=== PATIENT | female | born 1965 | race Caucasian/White ===

== ENCOUNTER 2020-05-27 08:08 | Outpatient (REF) | payer OTHER, SELFPAY | END 2020-05-27 08:09 | disposition home or self-care (01) | LOC: HO.HMGCLDS 08:08 | PROVIDERS: PCP Internal Medicine; Visit Provider Internal Medicine | DX: Z20.828 Contact with and (suspected) exposure to other viral communicable diseases (principal) | CPT/HCPCS: 87635 ==

== ENCOUNTER 2020-05-28 13:49 | Outpatient (REF) | payer OTHER, SELFPAY ==
--- NOTE | 2020-05-28 13:53 | XR_ITS ---
EXAMINATION: LEFT KNEE 3 VIEWS CLINICAL INFORMATION: Left knee pain. COMPARISON: None. TECHNIQUE: AP, lateral, oblique views of the left knee were obtained. FINDINGS: There are no fractures or dislocations. There is no knee joint effusion. There is no significant soft tissue swelling. XR/XR knee LT 4V IMPRESSION: Unremarkable left knee radiographs.
== END 2020-05-28 13:50 | disposition home or self-care (01) ==
LOC: HO.HMGCX 13:49
PROVIDERS: PCP Internal Medicine; Visit Provider Nurse Practitioner Family
DX: M25.562 Pain in left knee (principal)
CPT/HCPCS: 73564

== ENCOUNTER 2020-06-12 07:24 | Outpatient (REF) | payer OTHER, SELFPAY ==
[2020-06-12 12:03] LABS: Alanine Aminotransferase 9 U/L (0-31); Anion Gap 15 (12-20); Aspartate Amino Transferase 15 U/L (5-31); Blood Urea Nitrogen 18 mg/dL (9-16); Calcium 8.7 mg/dL (8.4-10.2); Carbon Dioxide 24 mmol/L (22-29); Chloride 103 mmol/L (96-108); Cholesterol 207 mg/dL; Estimated Glomerular Filt Rate 39; HDL Cholesterol 52 mg/dL; LDL Cholesterol Calculated 121 mg/dl; Potassium 4.9 mmol/l (3.3-5.1); Sodium 137 mmol/L (135-145); Triglycerides 170 mg/dL
[2020-06-12 12:08] LABS: Free T4 (Free Thyroxine) 1.05 ng/dL (0.71-1.85); Thyroid Stimulating Hormone 3.61 uIU/mL (0.32-4.0)
[2020-06-12 12:13] LABS: Glucose Fasting 61 mg/dL (60-99)
== END 2020-06-12 07:25 | disposition home or self-care (01) ==
LOC: HO.HMGCLDS 07:24
PROVIDERS: PCP Internal Medicine; Visit Provider Internal Medicine
DX: E10.21 Type 1 diabetes mellitus with diabetic nephropathy (principal); E03.9 Hypothyroidism, unspecified; E78.5 Hyperlipidemia, unspecified; F10.21 Alcohol dependence, in remission; Z87.440 Personal history of urinary (tract) infections
CPT/HCPCS: 80048; 80061; 84439; 84443; 84450; 84460

== ENCOUNTER 2020-06-18 08:47 | Outpatient (REF) | payer OTHER, SELFPAY ==
[2020-06-18 12:50] LABS: Creatinine Urine 100.47 mg/dL; Microalbum/Creatinine Ratio Ur 43.7 ug/mg cr
== END 2020-06-18 08:48 | disposition home or self-care (01) ==
LOC: HO.HMGCLDS 08:47
PROVIDERS: Visit Provider Internal Medicine
DX: Z20.828 Contact with and (suspected) exposure to other viral communicable diseases (principal)
CPT/HCPCS: 82043; C9803; U0003

== ENCOUNTER 2020-08-12 14:22 | Outpatient (REF) | payer OTHER, SELFPAY ==
[2020-08-12 15:03] LABS: COVID-19 Test Negative (Negative)
== END 2020-08-12 14:23 | disposition home or self-care (01) ==
LOC: HO.EMPCOV 14:22
PROVIDERS: PCP Internal Medicine; Visit Provider Internal Medicine
DX: Z20.822 Contact with and (suspected) exposure to COVID-19 (principal)
CPT/HCPCS: 36415; 87635; C9803

== ENCOUNTER 2020-08-17 11:07 | Outpatient (REF) | payer OTHER, SELFPAY ==
[2020-08-17 11:23] LABS: COVID-19 Test Negative (Negative)
== END 2020-08-17 11:08 | disposition home or self-care (01) ==
LOC: HO.EMPCOV 11:07
PROVIDERS: Visit Provider Internal Medicine
DX: Z20.822 Contact with and (suspected) exposure to COVID-19 (principal)
CPT/HCPCS: 36415; 87635; C9803

== ENCOUNTER 2020-09-29 08:15 | Outpatient (REF) | payer OTHER, SELFPAY ==
[2020-09-29 08:31] LABS: COVID-19 Test Negative (Negative)
== END 2020-09-29 08:16 | disposition home or self-care (01) ==
LOC: HO.EMPCOV 08:15
PROVIDERS: Visit Provider Internal Medicine
DX: Z20.822 Contact with and (suspected) exposure to COVID-19 (principal)
CPT/HCPCS: 36415; 87635; C9803

== ENCOUNTER → 2020-11-17 11:03 | Outpatient (BNVA) | payer OTHER, SELFPAY | PROVIDERS: PCP Nurse Practitioner Family; Visit Provider Student in an Organized Health Care Education/Training Program ==

== ENCOUNTER 2020-11-21 10:07 | Outpatient (REF) | payer OTHER, SELFPAY ==
--- NOTE | ~2020-11-21 | XR_ITS ---
EXAMINATION: XR FOOT, RIGHT CLINICAL INFORMATION: Right foot pain. COMPARISON: None TECHNIQUE: AP, lateral, and oblique views of the right foot. FINDINGS: Moderate degenerative changes are seen at the third metatarsophalangeal joint. There is no acute fracture or dislocation. The tarsal bones are normally aligned. The soft tissues are unremarkable. XR/XR foot RT min 3V IMPRESSION: Moderate third metatarsophalangeal degenerative joint changes are nonspecific, but has an appearance more consistent with osteoarthritis than rheumatoid arthritis.
--- NOTE | ~2020-11-21 | XR_ITS ---
EXAMINATION: XR HAND, BILATERAL CLINICAL INFORMATION: Rheumatoid arthritis. COMPARISON: Correlation with right wrist 03/07/2017; bilateral hands 12/09/2015 TECHNIQUE: Bilateral hands each 4 views. FINDINGS: LEFT HAND: Severe arthropathy in the 2nd and 4th MCP joints, with joint space loss, prominent erosive changes, new from previous. Fingers are flexed in positioning. Suspected mild joint space loss at the 2nd-5th DIP joints. No fracture. No abnormal soft tissue calcification. RIGHT HAND: Possible subtle erosion in the proximal base of 2nd and 4th metacarpal, only visualized on one view. Cortical irregularity perhaps erosive changes along the radial aspect of the distal scaphoid. No ulnar styloid erosion is seen. Borderline 2nd-5th DIP joint space narrowing. No additional erosive changes are seen. No fracture. No abnormal soft tissue calcification. XR/XR hand wrist LT IMPRESSION: 1. Severe left 2nd and 4th MCP joint arthritis, with prominent erosive changes. Findings new from the prior study of 12/09/2015. Findings correlate with the clinical history of rheumatoid arthritis. 2. In the right hand, question subtle erosion in the proximal 2nd and 4th metacarpal base, and the radial aspect of the scaphoid.
--- NOTE | ~2020-11-21 | XR_ITS ---
EXAMINATION: XR CHEST CLINICAL INFORMATION: Rheumatoid arthritis with rheumatoid factor. COMPARISON: 09/09/2019 portable chest. TECHNIQUE: 2 views of the chest were obtained. FINDINGS: No significant abnormality is noted involving the heart, lungs, mediastinum, bony thorax or soft tissues. XR/XR chest 2V IMPRESSION: No acute cardiopulmonary process.
--- NOTE | ~2020-11-21 | XR_ITS ---
EXAMINATION: XR FOOT, LEFT CLINICAL INFORMATION: Rheumatoid arthritis with rheumatoid factor. COMPARISON: None TECHNIQUE: AP, lateral, and oblique views of the left foot. FINDINGS: Moderate degenerative changes are seen at the fourth metatarsophalangeal joint. The remainder the joint spaces are unremarkable. There is an old healed mid fifth metatarsal diaphyseal fracture. There is a type I accessory navicular bone. The tarsal bones are normally aligned. The soft tissues are unremarkable. XR/XR foot LT min 3V IMPRESSION: Moderate degenerative changes at the fourth metatarsophalangeal joint which could be secondary to rheumatoid arthritis. Osteoarthritis cannot be excluded. No acute abnormality.
--- NOTE | ~2020-11-21 | XR_ITS ---
EXAMINATION: XR HAND, BILATERAL CLINICAL INFORMATION: Rheumatoid arthritis. COMPARISON: Correlation with right wrist 03/07/2017; bilateral hands 12/09/2015 TECHNIQUE: Bilateral hands each 4 views. FINDINGS: LEFT HAND: Severe arthropathy in the 2nd and 4th MCP joints, with joint space loss, prominent erosive changes, new from previous. Fingers are flexed in positioning. Suspected mild joint space loss at the 2nd-5th DIP joints. No fracture. No abnormal soft tissue calcification. RIGHT HAND: Possible subtle erosion in the proximal base of 2nd and 4th metacarpal, only visualized on one view. Cortical irregularity perhaps erosive changes along the radial aspect of the distal scaphoid. No ulnar styloid erosion is seen. Borderline 2nd-5th DIP joint space narrowing. No additional erosive changes are seen. No fracture. No abnormal soft tissue calcification. XR/XR hand wrist RT IMPRESSION: 1. Severe left 2nd and 4th MCP joint arthritis, with prominent erosive changes. Findings new from the prior study of 12/09/2015. Findings correlate with the clinical history of rheumatoid arthritis. 2. In the right hand, question subtle erosion in the proximal 2nd and 4th metacarpal base, and the radial aspect of the scaphoid.
[2020-11-21 11:07] LABS: MANUAL DIFF FLAG NO
[2020-11-21 11:14] LABS: Basophils Absolute Auto 0.1 X10*3/uL (0.0-0.2); Basophils Percent Auto 0.5 % (0-2); Eosinophils Percent Auto 0.1 % (0-4); Hemoglobin 12.2 g/dl (12.0-16.0); Imm Gran Abs Auto 0.05 X10*3/uL (0.00-0.03); Imm Gran Pct Auto 0.5 % (0.0-0.4); Lymphocytes Absolute Auto 1.6 X10*3/uL (1.2-4.9); Lymphocytes Percent Auto 16.6 % (20-40); Mean Corpuscular Hemoglobin 30.7 pg (27.0-33.0); Mean Platelet Volume 9.4 fL (9.4-12.3); Monocytes Absolute Auto 0.4 X10*3/uL (0.1-1.2); Monocytes Percent Auto 4.6 % (2-11); Neutrophils Absolute Auto 7.3 X10*3/uL (2.0-8.3); Neutrophils Percent Auto 77.7 % (45-73); Platelet Count 415 X10*3/uL (160-400); Red Blood Count 3.98 X10*6/uL (4.20-5.50); Red Cell Distribution Width 13.1 % (11.0-16.0); White Blood Count 9.4 X10*3/uL (4.8-10.8)
[2020-11-21 11:54] LABS: Erythrocyte Sedimentation Rate 22 MM/HR (0-20)
[2020-11-21 11:58] LABS: Microalbum/Creatinine Ratio Ur 42.4 ug/mg cr
[2020-11-21 11:59] LABS: Estimated Average Glucose 214 mg/dL; Hemoglobin A1c % 9.1 %
[2020-11-21 12:19] LABS: Alanine Aminotransferase 12 U/L (0-31); Albumin Level 4.2 g/dL (3.5-5.0); Alkaline Phosphatase 85 U/L (39-117); Anion Gap 18 (12-20); Aspartate Amino Transferase 12 U/L (5-31); Bilirubin Total 0.7 mg/dL (0.0-1.0); Blood Urea Nitrogen 16 mg/dL (9-16); C Reactive Protein 0.45 mg/dL (< or = 0.50); Calcium 9.8 mg/dL (8.4-10.2); Carbon Dioxide 25 mmol/L (22-29); Chloride 98 mmol/L (96-108); Cholesterol 247 mg/dL; Estimated Glomerular Filt Rate 38; Glucose Fasting 404 mg/dL (60-99); HDL Cholesterol 66 mg/dL; LDL Cholesterol Calculated 129 mg/dl; Rheumatoid Factor 123.1 IU/mL (<15.0); Sodium 136 mmol/L (135-145); Total Protein 7.2 g/dL (6.5-8.0); Triglycerides 263 mg/dL
[2020-11-23 08:13] LABS: HBsAGNum1 0.16 S/CO (0.00-0.99); Hepatitis B Surface Antigen Negative (Negative); ~HepC Num1 0.09 S/CO (0.00-0.79); ~Hepatitis C Antibody Nonreactive (Nonreactive)
[2020-11-23 08:53] LABS: HBS Num1 0.19 mIU/mL (0-7.99); HBc Num1 0.05 S/CO (0.00-0.79); Hepatitis B Core Antibody Nonreactive (Nonreactive); ~Hepatitis B Surface Antibody NONREACTIVE (Nonreactive)
[2020-11-23 13:17] LABS: Antibody to SS-A Antigen <1.0 NEG AI (<1.0 NEG); Antibody to SS-B Antigen <1.0 NEG AI (<1.0 NEG)
[2020-11-23 15:41] LABS: Cyclic Citrullinated Peptide <16 UNITS
[2020-11-23 17:22] LABS: Lyme Abs Screen <0.90 index
[2020-11-25 08:23] LABS: Hepatitis A Antibody IgM 0.13 Index (0-0.79); ~Hepatitis A Antibody IgM Nonreactive (Nonreactive)
== END 2020-11-21 10:08 | disposition home or self-care (01) ==
LOC: HO.LAB 10:07
PROVIDERS: Internal Medicine; Nurse Practitioner Family; PCP Nurse Practitioner Family; Visit Provider Student in an Organized Health Care Education/Training Program
DX: M05.741 Rheumatoid arthritis with rheumatoid factor of right hand without organ or systems involvement (principal); M05.742 Rheumatoid arthritis with rheumatoid factor of left hand without organ or systems involvement; E10.40 Type 1 diabetes mellitus with diabetic neuropathy, unspecified; E10.65 Type 1 diabetes mellitus with hyperglycemia; E78.5 Hyperlipidemia, unspecified; M25.50 Pain in unspecified joint
CPT/HCPCS: 36415; 71046; 73110; 73130; 73630; 80053; 80061; 82043; 83036; 85025; 85652; 86140; 86200; 86235; 86431; 86617; 86618; 86704; 86706; 86709; 86803; 87340

== ENCOUNTER → 2020-12-03 15:31 | Outpatient (BNVA) | payer OTHER, SELFPAY | PROVIDERS: PCP Nurse Practitioner Family; Visit Provider Student in an Organized Health Care Education/Training Program ==

== ENCOUNTER 2020-12-04 11:36 | Outpatient (REF) | payer OTHER, SELFPAY ==
[2020-12-06 21:46] LABS: TS Negative Control Passed; TS Panel A 0; TS Panel B 0; TS Positive Control Passed; TSpotTB Negative (SeeBelow)
== END 2020-12-04 11:37 | disposition home or self-care (01) ==
LOC: HO.HMGCLDS 11:36
PROVIDERS: Visit Provider Student in an Organized Health Care Education/Training Program
DX: M05.741 Rheumatoid arthritis with rheumatoid factor of right hand without organ or systems involvement (principal); M05.742 Rheumatoid arthritis with rheumatoid factor of left hand without organ or systems involvement; E78.5 Hyperlipidemia, unspecified; E10.65 Type 1 diabetes mellitus with hyperglycemia; E10.40 Type 1 diabetes mellitus with diabetic neuropathy, unspecified
CPT/HCPCS: 36415; 86481

== ENCOUNTER 2021-01-01 11:34 | Outpatient (REF) | payer OTHER, SELFPAY ==
[2021-01-01 14:21] LABS: MANUAL DIFF FLAG NO
[2021-01-01 14:34] LABS: Basophils Absolute Auto 0.1 X10*3/uL (0.0-0.2); Basophils Percent Auto 0.8 % (0-2); Eosinophils Absolute Auto 0.1 X10*3/uL (0.0-0.4); Hematocrit 36.5 % (37-47); Hemoglobin 11.7 g/dl (12.0-16.0); Imm Gran Abs Auto 0.03 X10*3/uL (0.00-0.03); Imm Gran Pct Auto 0.3 % (0.0-0.4); Lymphocytes Absolute Auto 3.3 X10*3/uL (1.2-4.9); Lymphocytes Percent Auto 28.3 % (20-40); Mean Corpuscular HGB Conc 32.1 g/dl (31.0-35.0); Mean Corpuscular Hemoglobin 30.6 pg (27.0-33.0); Mean Corpuscular Volume 95.5 fL (80-98); Mean Platelet Volume 9.8 fL (9.4-12.3); Monocytes Absolute Auto 0.6 X10*3/uL (0.1-1.2); Monocytes Percent Auto 5.5 % (2-11); Neutrophils Absolute Auto 7.4 X10*3/uL (2.0-8.3); Neutrophils Percent Auto 64.1 % (45-73); Platelet Count 408 X10*3/uL (160-400); Red Blood Count 3.82 X10*6/uL (4.20-5.50); Red Cell Distribution Width 12.5 % (11.0-16.0); White Blood Count 11.5 X10*3/uL (4.8-10.8)
[2021-01-01 14:46] LABS: Alanine Aminotransferase 16 U/L (0-31); Albumin Level 4.2 g/dL (3.5-5.0); Alkaline Phosphatase 113 U/L (39-117); Anion Gap 14 (12-20); Aspartate Amino Transferase 17 U/L (5-31); Bilirubin Total 0.6 mg/dL (0.0-1.0); Blood Urea Nitrogen 20 mg/dL (9-16); Carbon Dioxide 26 mmol/L (22-29); Chloride 101 mmol/L (96-108); Estimated Glomerular Filt Rate 41; Glucose Random 203 mg/dL (60-115); Sodium 136 mmol/L (135-145)
== END 2021-01-01 11:35 | disposition home or self-care (01) ==
LOC: HO.HMGCLDS 11:34
PROVIDERS: Internal Medicine; Student in an Organized Health Care Education/Training Program; PCP Nurse Practitioner Family; Visit Provider Nurse Practitioner Family
DX: M05.741 Rheumatoid arthritis with rheumatoid factor of right hand without organ or systems involvement (principal); M05.742 Rheumatoid arthritis with rheumatoid factor of left hand without organ or systems involvement; E10.40 Type 1 diabetes mellitus with diabetic neuropathy, unspecified; E10.65 Type 1 diabetes mellitus with hyperglycemia; E78.5 Hyperlipidemia, unspecified; E10.29 Type 1 diabetes mellitus with other diabetic kidney complication
CPT/HCPCS: 36415; 80053; 85025

== ENCOUNTER → 2021-01-13 16:30 | Outpatient (BNVA) | payer OTHER, SELFPAY | PROVIDERS: PCP Nurse Practitioner Family; Visit Provider Student in an Organized Health Care Education/Training Program ==

== ENCOUNTER 2021-03-22 13:29 | Outpatient (REF) | payer OTHER, SELFPAY ==
[2021-03-22 16:08] LABS: MANUAL DIFF FLAG NO
[2021-03-22 16:13] LABS: Basophils Absolute Auto 0.1 X10*3/uL (0.0-0.2); Basophils Percent Auto 0.7 % (0-2); Eosinophils Percent Auto 0.1 % (0-4); Hematocrit 36.2 % (37-47); Hemoglobin 11.8 g/dl (12.0-16.0); Imm Gran Abs Auto 0.04 X10*3/uL (0.00-0.03); Imm Gran Pct Auto 0.4 % (0.0-0.4); Lymphocytes Absolute Auto 1.5 X10*3/uL (1.2-4.9); Lymphocytes Percent Auto 14.6 % (20-40); Mean Corpuscular HGB Conc 32.6 g/dl (31.0-35.0); Mean Corpuscular Hemoglobin 30.8 pg (27.0-33.0); Mean Corpuscular Volume 94.5 fL (80-98); Mean Platelet Volume 10.2 fL (9.4-12.3); Monocytes Absolute Auto 0.4 X10*3/uL (0.1-1.2); Monocytes Percent Auto 4.2 % (2-11); Neutrophils Absolute Auto 8.4 X10*3/uL (2.0-8.3); Platelet Count 388 X10*3/uL (160-400); Red Blood Count 3.83 X10*6/uL (4.20-5.50); Red Cell Distribution Width 12.5 % (11.0-16.0); White Blood Count 10.5 X10*3/uL (4.8-10.8)
[2021-03-22 16:35] LABS: Alanine Aminotransferase 16 U/L (0-31); Albumin Level 4.2 g/dL (3.5-5.0); Alkaline Phosphatase 112 U/L (39-117); Anion Gap 17 (12-20); Aspartate Amino Transferase 12 U/L (5-31); Bilirubin Total 0.8 mg/dL (0.0-1.0); Blood Urea Nitrogen 24 mg/dL (9-16); C Reactive Protein 0.51 mg/dL (< or = 0.50); Calcium 9.1 mg/dL (8.4-10.2); Carbon Dioxide 21 mmol/L (22-29); Chloride 99 mmol/L (96-108); Estimated Glomerular Filt Rate 28; Glucose Random 548 mg/dL (60-115); Potassium 5.8 mmol/L (3.3-5.1); Sodium 131 mmol/L (135-145); Total Protein 7.1 g/dL (6.5-8.0)
[2021-03-22 16:51] LABS: Erythrocyte Sedimentation Rate 14 MM/HR (0-20)
== END 2021-03-22 13:30 | disposition home or self-care (01) ==
LOC: HO.HMGCLDS 13:29
PROVIDERS: PCP Nurse Practitioner Family; Visit Provider Student in an Organized Health Care Education/Training Program
DX: M05.741 Rheumatoid arthritis with rheumatoid factor of right hand without organ or systems involvement (principal); M05.742 Rheumatoid arthritis with rheumatoid factor of left hand without organ or systems involvement
CPT/HCPCS: 36415; 80053; 85025; 85652; 86140

== ENCOUNTER → 2021-03-23 16:03 | Outpatient (BNVA) | payer OTHER, SELFPAY | PROVIDERS: PCP Nurse Practitioner Family; Visit Provider Student in an Organized Health Care Education/Training Program ==

== ENCOUNTER 2021-04-13 06:32 | Outpatient (REF) | payer OTHER, SELFPAY ==
[2021-04-13 11:25] LABS: MANUAL DIFF FLAG NO
[2021-04-13 11:32] LABS: Appearance Urine HAZY; Color Urine YELLOW; Glucose Urine UA NEG (NEG); Leukocyte Esterase Urine 3+ (NEG); Nitrite Urine POS (NEG); PH 6.5 (5.0-8.0); UACC Culture Trigger YES; Urine Blood TRACE (NEG); Urine Ketones NEG (NEG); Urine Protein TRACE MG/DL (NEG-TRACE)
[2021-04-13 11:39] LABS: Basophils Absolute Auto 0.1 X10*3/uL (0.0-0.2); Basophils Percent Auto 0.5 % (0-2); Eosinophils Absolute Auto 0.1 X10*3/uL (0.0-0.4); Eosinophils Percent Auto 0.5 % (0-4); Hematocrit 35.7 % (37-47); Hemoglobin 11.7 g/dl (12.0-16.0); Imm Gran Abs Auto 0.07 X10*3/uL (0.00-0.03); Imm Gran Pct Auto 0.5 % (0.0-0.4); Lymphocytes Absolute Auto 4.2 X10*3/uL (1.2-4.9); Lymphocytes Percent Auto 30.3 % (20-40); Mean Corpuscular HGB Conc 32.8 g/dl (31.0-35.0); Mean Corpuscular Hemoglobin 30.8 pg (27.0-33.0); Mean Corpuscular Volume 93.9 fL (80-98); Mean Platelet Volume 10.2 fL (9.4-12.3); Monocytes Absolute Auto 0.8 X10*3/uL (0.1-1.2); Monocytes Percent Auto 5.9 % (2-11); Neutrophils Absolute Auto 8.6 X10*3/uL (2.0-8.3); Neutrophils Percent Auto 62.3 % (45-73); Platelet Count 402 X10*3/uL (160-400); Red Cell Distribution Width 12.7 % (11.0-16.0); White Blood Count 13.8 X10*3/uL (4.8-10.8)
[2021-04-13 11:54] LABS: Bacteria Urine 4+ /LPF; RBC Urine 0-2 /HPF (0); Squamous Epithelial Cell Urine 2+ /LPF; WBC Urine 30-49 /HPF (0-4)
[2021-04-13 11:55] LABS: Alanine Aminotransferase 10 U/L (0-31); Albumin Level 3.9 g/dL (3.5-5.0); Alkaline Phosphatase 67 U/L (39-117); Anion Gap 14 (12-20); Aspartate Amino Transferase 10 U/L (5-31); Bilirubin Total 1.1 mg/dL (0.0-1.0); Blood Urea Nitrogen 20 mg/dL (9-16); Calcium 9.2 mg/dL (8.4-10.2); Carbon Dioxide 25 mmol/L (22-29); Chloride 101 mmol/L (96-108); Estimated Glomerular Filt Rate 38; Glucose Random 138 mg/dL (60-115); Potassium 5.1 mmol/L (3.3-5.1); Sodium 135 mmol/L (135-145); Total Protein 6.6 g/dL (6.5-8.0)
[2021-04-13 12:00] LABS: Estimated Average Glucose 203 mg/dL; Hemoglobin A1c % 8.7 %
== END 2021-04-13 06:33 | disposition home or self-care (01) ==
LOC: HO.HMGCLDS 06:32
PROVIDERS: PCP Nurse Practitioner Family; Visit Provider Nurse Practitioner Family
DX: E10.40 Type 1 diabetes mellitus with diabetic neuropathy, unspecified (principal); E87.5 Hyperkalemia; D72.829 Elevated white blood cell count, unspecified
CPT/HCPCS: 36415; 80053; 81001; 83036; 85025; 87086; 87088; 87186

== ENCOUNTER 2021-04-24 08:21 | Outpatient (REF) | payer OTHER, SELFPAY ==
[2021-04-24 08:44] LABS: COVID-19 Test Positive (Negative)
== END 2021-04-24 08:22 | disposition home or self-care (01) ==
LOC: HO.EMPCOV 08:21
PROVIDERS: PCP Nurse Practitioner Family; Visit Provider Internal Medicine
DX: Z20.822 Contact with and (suspected) exposure to COVID-19 (principal)
CPT/HCPCS: 36415; 87635

== ENCOUNTER 2021-06-05 07:38 | Outpatient (REF) | payer OTHER, SELFPAY ==
--- NOTE | ~2021-06-05 | MM_ITS ---
EXAMINATION: MM SCREENING DIGITAL BREAST TOMOSYNTHESIS, BILATERAL CLINICAL INFORMATION: Screening. Asymptomatic. The lifetime risk of breast cancer based on the Tyrer-Cuzick Model is 7%. COMPARISON: Outside mammography 06/30/2017 ([facility]). TECHNIQUE: Digital mammography is performed in craniocaudal and mediolateral oblique views along with computer-aided detection (CAD). Digital breast tomosynthesis is performed in implant-displaced craniocaudal and implant-displaced mediolateral oblique views along with computer-aided detection (CAD). Synthesized 2D images are generated from the tomosynthesis. FINDINGS: The breasts are heterogeneously dense, which may obscure small masses (ACR BI-RADS breast composition Category c). There are bilateral implants. The implant contours are smooth and similar to outside exam. Parenchymal pattern is similar to prior study. There is no significant mass or architectural abnormality or abnormal calcifications. Low right axillary node is stable. The skin contours are smooth. MM/MM tomosynthesis screen imp BI IMPRESSION: No mammographic evidence of malignancy. ASSESSMENT: BI-RADS 1: Negative RECOMMENDATION: Routine annual mammography screening. This patient's information was entered into a reminder system with a target due date for their next mammogram.
== END 2021-06-05 07:39 | disposition home or self-care (01) ==
LOC: HO.MAMMO 07:38
PROVIDERS: Visit Provider Nurse Practitioner Family
DX: Z12.31 Encounter for screening mammogram for malignant neoplasm of breast (principal)
CPT/HCPCS: 77063; 77067

== ENCOUNTER 2021-06-28 14:28 | Outpatient (REF) | payer OTHER, SELFPAY ==
[2021-06-28 15:38] LABS: MANUAL DIFF FLAG NO
[2021-06-28 15:42] LABS: Basophils Absolute Auto 0.1 X10*3/uL (0.0-0.2); Basophils Percent Auto 0.6 % (0-2); Eosinophils Absolute Auto 0.1 X10*3/uL (0.0-0.4); Eosinophils Percent Auto 0.8 % (0-4); Hematocrit 34.3 % (37.0-47.0); Hemoglobin 11.2 g/dl (12.0-16.0); Imm Gran Abs Auto 0.02 X10*3/uL (0.00-0.03); Imm Gran Pct Auto 0.3 % (0.0-0.4); Lymphocytes Absolute Auto 1.5 X10*3/uL (1.2-4.9); Lymphocytes Percent Auto 19.5 % (20-40); Mean Corpuscular HGB Conc 32.7 g/dl (31.0-35.0); Mean Corpuscular Hemoglobin 30.5 pg (27.0-33.0); Mean Corpuscular Volume 93.5 fL (80.0-98.0); Mean Platelet Volume 9.3 fL (9.4-12.3); Monocytes Absolute Auto 0.6 X10*3/uL (0.1-1.2); Monocytes Percent Auto 7.7 % (2-11); Neutrophils Absolute Auto 5.6 x10*3/uL (2.0-8.3); Neutrophils Percent Auto 71.1 % (45-73); Platelet Count 379 X10*3/uL (160-400); Red Blood Count 3.67 X10*6/uL (4.20-5.50); White Blood Count 7.8 X10*3/uL (4.8-10.8)
[2021-06-28 16:06] LABS: Alanine Aminotransferase 10 U/L (0-31); Albumin Level 3.7 g/dL (3.5-5.0); Alkaline Phosphatase 126 U/L (39-117); Anion Gap 16 (12-20); Aspartate Amino Transferase 11 U/L (5-31); Bilirubin Total 0.5 mg/dL (0.0-1.0); Blood Urea Nitrogen 19 mg/dL (9-16); C Reactive Protein 8.84 mg/dL (< or = 0.50); Calcium 9.1 mg/dL (8.4-10.2); Carbon Dioxide 24 mmol/L (22-29); Chloride 102 mmol/L (96-108); Estimated Glomerular Filt Rate 34; Glucose Random 344 mg/dL (60-115); Potassium 5.1 mmol/L (3.3-5.1); Sodium 137 mmol/L (135-145); Total Protein 6.8 g/dL (6.5-8.0)
[2021-06-28 16:48] LABS: Erythrocyte Sedimentation Rate 36 MM/HR (0-20)
== END 2021-06-28 14:29 | disposition home or self-care (01) ==
LOC: HO.LAB 14:28
PROVIDERS: PCP Nurse Practitioner Family; Visit Provider Nurse Practitioner Family
DX: M05.741 Rheumatoid arthritis with rheumatoid factor of right hand without organ or systems involvement (principal); M05.742 Rheumatoid arthritis with rheumatoid factor of left hand without organ or systems involvement
CPT/HCPCS: 36415; 80053; 85025; 85652; 86140

== ENCOUNTER 2021-07-09 08:56 | Emergency (ER) | payer OTHER, SELFPAY ==
[2021-07-09 09:17] VITALS: BP 186/91; PULSE 90; RESP 18; TEMP 36.8; O2SAT 99; BMI 25.8
--- NOTE | 2021-07-09 09:34 | ED.EXTPRO ---
HPI - Extremity Problem General Chief complaint: Extremity Injury, Upper <MARILU Dean - Last Filed: 07/09/21 11:39> Stated complaint: PAIN IN BOTH HANDS <MARILU Dean - Last Filed: 07/09/21 11:39> Time Seen by Provider: 07/09/21 09:34 <MARILU Dean Last Filed: 07/09/21 11:39> Source: patient <MARILU Dean - Last Filed: 07/09/21 11:39> Mode of arrival: ambulatory <MARILU Dean - Last Filed: 07/09/21 11:39> Limitations: no limitations <MARILU Dean Last Filed: 07/09/21 11:39> History of Present Illness HPI Narrative: 55-year-old female with a history of poorly diabetes on insulin, rheumatoid arthritis, dyslipidemia, anxiety who presents to the ER with worsening bilateral hand pain for the last couple of months. She just saw her printed circuit boards laminator last week and was recently on prednisone for this. She states her left dorsal hand has been hurting more recently though any known trauma. She was just started on a different biologic agent for her poorly controlled RA - she gave herself SC Kevzara yesterday for the 1st time. She reports not being able to sleep at all last night due to the pain in her left hand. She took her last couple of prednisone tablets today. <MARILU Dean - Last Filed: 07/09/21 11:39> MD Complaint: joint swelling and joint paint <MARILU Dean - Last Filed: 07/09/21 11:39> Onset (ago): month(s) <MARILU Dean - Last Filed: 07/09/21 11:39> Pain Consistency: constant <MARILU Dean Last Filed: 07/09/21 11:39> Location: left, right and upper extremity <MARILU Dean Last Filed: 07/09/21 11:39> Quality: aching <MARILU Dean Last Filed: 07/09/21 11:39> Radiation: none <MARILU Dean Last Filed: 07/09/21 11:39> Relieving factors: immobilization and rest <MARILU Dean - Last Filed: 07/09/21 11:39> Exacerbating factors: range of motion and palpation <MARILU Dean - Last Filed: 07/09/21 11:39> Associated symptoms: denies other symptoms <MARILU Dean - Last Filed: 07/09/21 11:39> Context: other (History of poorly controlled rheumatoid arthritis) <MARILU Dean - Last Filed: 07/09/21 11:39> Related Data Home medications: Home Medications Medication Instructions Recorded Confirmed blood sugar diagnostic #10 ea 07/20/20 12/23/20 levonorgestrel 0.15 mg-ethinyl 1 tab PO DAILY 07/20/20 12/23/20 estradiol 0.03 mg tablet Previous Rx's Medication Instructions Recorded blood sugar diagnostic (FreeStyle #100 ea 12/23/20 Lite Strips) insulin glargine 100 unit/mL (3 24 unit SUBCUT BEDTIME #15 ml 03/20/21 mL) subcutaneous pen (Lantus Solostar U-100 Insulin) blood-glucose meter (FreeStyle #1 ea 03/30/21 Lite Meter) lisinopril 5 mg tablet 5 mg PO DAILY #90 tab 05/10/21 codeine 10 mg-guaifenesin 100 mg/5 5 ml PO .COMPLEX PRN 10 Days #1000 05/11/21 mL oral liquid ml codeine 6.3 mg-guaifenesin 100 5 ml PO .bid/prn PRN 10 Days #100 05/11/21 mg/5 mL oral liquid ml phenazopyridine 200 mg tablet 200 mg PO TID 3 Days #9 tab 05/15/21 (Pyridium) sulfamethoxazole 800 1 tab PO BID 5 Days #10 tab 05/15/21 mg-trimethoprim 160 mg tablet (Bactrim DS) flash glucose scanning reader #1 ea 06/01/21 (FreeStyle Irvin 14 Day Rogers) gabapentin 800 mg tablet 800 mg PO BID 90 Days #180 cap 06/15/21 flash glucose sensor (FreeStyle #1 ea 06/20/21 Irvin 14 Day Sensor) prednisone 5 mg tablet 5 mg PO DAILY #18 tab 06/28/21 sarilumab 200 mg/1.14 mL 200 mg SUBCUT Q2W #2.28 ml 06/29/21 subcutaneous pen injector (Kevzara) insulin lispro 100 unit/mL See Rx Instructions SUBCUT .3 07/02/21 subcutaneous pen (Humalog KwikPen times a day a.c. #15 ml (U-100) Insulin) hydrocodone 5 mg-acetaminophen 325 1 tab PO Q8H PRN #5 tab 07/09/21 mg tablet ondansetron HCl 4 mg tablet 4 mg PO Q8H PRN #7 tab 07/09/21 (Zofran) prednisone 5 mg tablets in a dose 5 mg PO PER PKG DIR #21 ea 07/09/21 pack <MARILU Dean - Last Filed: 07/09/21 11:39> Allergies/Adverse reactions: Allergies Allergy/AdvReac Type Severity Reaction Status Date / Time Iodinated Contrast Media Allergy Severe ANAPHYLAXIS Verified 06/28/21 14:51 [CONTRAST, IV] <MARILU Dean - Last Filed: 07/09/21 11:39> Review of Systems Review of Systems: Constitutional: No Fever, No Chills Cardiovascular: No Chest Pain, No SOB Gastrointestinal: No Nausea, No Vomiting Musculoskeletal: + joint pain, No Myalgias, +joint swelling Skin: No Skin Lesions, No rash Neuro: No Weakness, No Numbness Psych: + Anxiety/Panic, + Depression Heme/Lymph: No Bruising, No Lymphadenopathy <MARILU Dean - Last Filed: 07/09/21 11:39> [facility] Past Medical History Medical History: Medical History Alcohol intake above recommended sensible limits Dyslipidemia Fracture of fifth metatarsal bone of left foot Rheumatoid arthritis involving both hands with positive rheumatoid factor Type 1 diabetes mellitus with diabetic neuropathy Type 1 diabetes mellitus with hyperglycemia Type 1 diabetes mellitus with kidney complication <MARILU Dean - Last Filed: 07/09/21 11:39> Surgical History: Surgical History History of breast implant History of colonoscopy History of inguinal hernia repair <MARILU Dean - Last Filed: 07/09/21 11:39> Family History Family History: Family History Father No problems noted. Mother CVD (cardiovascular disease) <MARILU Dean - Last Filed: 07/09/21 11:39> Social History Social History: Social History Alcohol intake: current Alcohol intake frequency: 0-2 drinks per day Patient Tobacco Use Status: Never used Tobacco Advance Directives: No Advance Directives Information Provided: No Patient : No <MARILU Dean - Last Filed: 07/09/21 11:39> Physical Exam Vital Signs: Vital Signs: Last Vital Signs Temp 98.3 F 07/09/21 09:17 Pulse 90 07/09/21 09:17 Resp 18 07/09/21 09:17 BP 186/91 H 07/09/21 09:17 Pulse Ox 99 07/09/21 09:17 BMI result Body Mass Index 25.8 <MARILU Dean - Last Filed: 07/09/21 11:39> Vital Signs: Last Vital Signs Temp 98.3 F 07/09/21 09:17 Pulse 90 07/09/21 09:17 Resp 18 07/09/21 09:17 BP 186/91 H 07/09/21 09:17 Pulse Ox 99 07/09/21 09:17 BMI result Body Mass Index 25.8 <James Luis MD - Last Filed: 07/09/21 17:28> Appearance: Alert. Oriented X3. No acute distress. HEENT: normal inspection CVS: Normal heart rate and rhythm. Pulses normal. Respiratory: No respiratory distress. Skin: Skin warm and dry. Normal skin color. Normal skin turgor. No rashes. Extremities: dorsal left hand with moderate generalized swelling, tenderness of the metacarpals, dorsal wrist. pain with hand grasp. swollen PIP joints 4th 5th digits and diffuse MCP joint swelling and tenderness Neuro: Oriented X 3. No motor deficit. No sensory deficit. <MARILU Dean - Last Filed: 07/09/21 11:39> Course Course Course Narrative: 55-year-old female with a history poorly controlled rheumatoid arthritis, poorly controlled diabetes presenting to the ER with ongoing left hand pain, worsening over the last few weeks to months. She was recently seen by Rheumatology last week and started on a new biologic agent. She cannot tolerate the pain and is desperate for anything to help her. She did not call her printed circuit boards laminator today. 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 She denies any recent injury. Her hands are warm and well perfused with no signs of trauma. She does have moderate swelling of the left hand and MCPs. Will reach out to her rheumatology PA for recommendations. <MARILU Dean - Last Filed: 07/09/21 11:39> Reevaluation(s) Reevaluation #1: Spoke with Ratna Magana from Rheum - reviewed has been noncompliant with her prednisone taper. She is taking them as she sees fit and not as prescribed. There is concern for giving high-dose tapers or burst of steroids given her poorly controlled diabetes. Concerned she is again going to take prednisone taper incorrectly. Ratna is recommending a shortened low-dose prednisone taper while we are waiting for biologic take affect. Will also give a short course of Vicodin for severe pain. Discussed the importance of adhering to strict prednisone taper regimen as well as following up with her printed circuit boards laminator for evaluation and management moving forward. She expressed understanding and is in agreement with plan. She is stable for discharge home. <MARILU Dean - Last Filed: 07/09/21 11:39> Consultations Consultation #1: Rheumatology <MARILU Dean - Last Filed: 07/09/21 11:39> MDM - Extremity (Nontraumatic) Lab Data Labs: Lab Results 07/09/21 Range/Units 10:36 POC Glucose 106 (60-115) mg/dL <MARILU Dean - Last Filed: 07/09/21 11:39> Lab Results 07/09/21 Range/Units 10:36 POC Glucose 106 (60-115) mg/dL <James Luis MD - Last Filed: 07/09/21 17:28> Critical Care Time Critical Care Time Critical Care Time: No <MARILU Dean - Last Filed: 07/09/21 11:39> Discharge Plan Discharge Clinical Impression: Rheumatoid arthritis involving both hands with positive rheumatoid factor <MARILU Dean - Last Filed: 07/09/21 11:39> Patient Disposition: Home, Self-Care <MARILU Dean - Last Filed: 07/09/21 11:39> Instructions: Rheumatoid Arthritis (ED) <MARILU Dean - Last Filed: 07/09/21 11:39> Additional Instructions: Take the prescribed prednisone taper as directed, take 1st dose tomorrow. Your given 1st dose today in the emergency room. It is important that you take the taper exactly as prescribed. Adjust your insulin and monitor blood sugar closely while on steroids. Take the prescribed hydrocodone medication as needed for severe pain, do not drive after taking his medication. Recommend compression with Richie wrap as needed for comfort. Ice and elevate as needed. Follow-up with your printed circuit boards laminator next week. If you develop new or worsening symptoms call 911 or come back to the ER for further evaluation. <MARILU Dean - Last Filed: 07/09/21 11:39> Prescriptions: New prednisone 5 mg tablets,dose pack 5 mg PO PER PKG DIR Qty: 21 RF: 0 hydrocodone-acetaminophen 5-325 mg tablet 1 tab PO Q8H PRN (Reason: pain) Qty: 5 RF: 0 ondansetron HCl [Zofran] 4 mg tablet 4 mg PO Q8H PRN (Reason: nausea and vomiting) Qty: 7 RF: 0 No Action Lantus Solostar U-100 Insulin 100 unit/mL (3 mL) insulin pen 24 unit subcut BEDTIME Qty: 15 RF: 3 (DME) blood-glucose meter [FreeStyle Lite Meter] Kit See Rx Instructions .Route Qty: 1 RF: 0 lisinopril 5 mg tablet 5 mg PO DAILY Qty: 90 RF: 0 codeine-guaifenesin 6.3-100 mg/5 mL liquid 5 ml PO .bid/prn PRN (Reason: cough) 10 Days Qty: 100 RF: 0 codeine-guaifenesin 10-100 mg/5 mL liquid 5 ml PO .COMPLEX PRN (Reason: allergy symptoms) 10 Days Qty: 1000 RF: 0 (DME) FreeStyle Irvin 14 Day Rogers Misc See Rx Instructions .Route Qty: 1 RF: 0 gabapentin 800 mg tablet 800 mg PO BID 90 Days Qty: 180 RF: 0 (DME) FreeStyle Irvin 14 Day Sensor Kit See Rx Instructions .Route Qty: 1 RF: 10 insulin lispro [Humalog KwikPen Insulin] 100 unit/mL insulin pen See Rx Instructions subcut .3 times a day a.c. Qty: 15 RF: 3 levonorgestrel-ethinyl estrad 0.15-0.03 mg tablet 1 tab PO DAILY RF: 0 (DME) OneTouch Ultra Blue Test Strip Strip See Rx Instructions ea .ROUTE QID Qty: 10 RF: 0 (DME) FreeStyle Lite Strips Strip See Rx Instructions .ROUTE .MEDSUPPLY Qty: 100 RF: 2 sulfamethoxazole-trimethoprim [Bactrim DS] 800-160 mg tablet 1 tab PO BID 5 Days Qty: 10 RF: 0 phenazopyridine [Pyridium] 200 mg tablet 200 mg PO TID 3 Days Qty: 9 RF: 0 prednisone 5 mg tablet 5 mg PO DAILY Qty: 18 RF: 0 Kevzara 200 mg/1.14 mL pen injector 200 mg subcut Q2W Qty: 2.28 RF: 1 <MARILU Dean - Last Filed: 07/09/21 11:39> Referrals: Sonia Magana [employer]OCIATE [Nurse Practitioner] - 1 week <MARILU Dean - Last Filed: 07/09/21 11:39> Interventions: ED Discharge Assessment Last Done: 07/09/21 10:40 <MARILU Dean - Last Filed: 07/09/21 11:39> Discharge Date/Time: 07/09/21 10:42 <MARILU Dean - Last Filed: 07/09/21 11:39>
[2021-07-09] MEDS: HYDROcodone Bit/Acetam 5/325 TABLET 1 TAB PO (10:08)
[2021-07-09] MEDS: Ondansetron ODT 4 MG TAB.RAPDIS TRANSLINGU (10:08)
[2021-07-09] MEDS: predniSONE 20 MG TABLET PO (10:09)
[2021-07-09 10:41] LABS: Glucose, Whole Blood 106 mg/dL (60-115)
== END 2021-07-09 10:42 | disposition home or self-care (01) ==
PROVIDERS: Emergency Provider Emergency Medicine; PCP Nurse Practitioner Family
DX: M05.9 Rheumatoid arthritis with rheumatoid factor, unspecified (principal); R79.89 Other specified abnormal findings of blood chemistry; Z91.14 Patient's other noncompliance with medication regimen; Z79.899 Other long term (current) drug therapy
CPT/HCPCS: 82947; 99283; 99284

== ENCOUNTER 2021-08-06 | Outpatient (REF) | payer OTHER, SELFPAY ==
[2021-08-06 11:20] LABS: MANUAL DIFF FLAG NO
[2021-08-06 11:36] LABS: Basophils Absolute Auto 0.1 X10*3/uL (0.0-0.2); Basophils Percent Auto 0.6 % (0-2); Eosinophils Absolute Auto 0.2 X10*3/uL (0.0-0.4); Eosinophils Percent Auto 2.3 % (0-4); Hematocrit 37.7 % (37.0-47.0); Hemoglobin 12.3 g/dl (12.0-16.0); Imm Gran Abs Auto 0.03 X10*3/uL (0.00-0.03); Imm Gran Pct Auto 0.4 % (0.0-0.4); Lymphocytes Absolute Auto 2.3 X10*3/uL (1.2-4.9); Lymphocytes Percent Auto 28.6 % (20-40); Mean Corpuscular HGB Conc 32.6 g/dl (31.0-35.0); Mean Corpuscular Hemoglobin 30.8 pg (27.0-33.0); Mean Corpuscular Volume 94.3 fL (80.0-98.0); Mean Platelet Volume 10.3 fL (9.4-12.3); Monocytes Absolute Auto 0.4 X10*3/uL (0.1-1.2); Monocytes Percent Auto 5.5 % (2-11); Neutrophils Percent Auto 62.6 % (45-73); Platelet Count 277 X10*3/uL (160-400); Red Cell Distribution Width 12.3 % (11.0-16.0)
[2021-08-06 12:02] LABS: Alanine Aminotransferase 16 U/L (0-31); Alkaline Phosphatase 64 U/L (39-117); Anion Gap 14 (12-20); Aspartate Amino Transferase 19 U/L (5-31); Bilirubin Total 0.9 mg/dL (0.0-1.0); Blood Urea Nitrogen 13 mg/dL (9-16); C Reactive Protein 0.08 mg/dL (< or = 0.50); Calcium 8.9 mg/dL (8.4-10.2); Carbon Dioxide 22 mmol/L (22-29); Chloride 105 mmol/L (96-108); Cholesterol 262 mg/dL; Estimated Glomerular Filt Rate 40; Glucose Random 209 mg/dL (60-115); HDL Cholesterol 55 mg/dL; LDL Cholesterol Calculated 147 mg/dl; Potassium 4.7 mmol/L (3.3-5.1); Sodium 136 mmol/L (135-145); Total Protein 6.8 g/dL (6.5-8.0); Triglycerides 303 mg/dL
[2021-08-06 13:28] LABS: Erythrocyte Sedimentation Rate 6 MM/HR (0-20)
[2021-08-06 14:05] LABS: Reflex LDLD? No
== END 2021-08-06 00:01 ==
LOC: HO.HMGCLDS
PROVIDERS: PCP Nurse Practitioner Family; Visit Provider Nurse Practitioner Family
DX: M05.741 Rheumatoid arthritis with rheumatoid factor of right hand without organ or systems involvement (principal); M05.742 Rheumatoid arthritis with rheumatoid factor of left hand without organ or systems involvement
CPT/HCPCS: 36415; 80053; 80061; 85025; 85652; 86140

== ENCOUNTER 2021-10-27 06:06 | Outpatient (REF) | payer OTHER, SELFPAY ==
[2021-10-27 11:42] LABS: MANUAL DIFF FLAG NO
[2021-10-27 12:00] LABS: Basophils Absolute Auto 0.1 X10*3/uL (0.0-0.2); Eosinophils Absolute Auto 0.3 X10*3/uL (0.0-0.4); Eosinophils Percent Auto 4.3 % (0-4); Hemoglobin 11.7 g/dl (12.0-16.0); Imm Gran Abs Auto 0.01 X10*3/uL (0.00-0.03); Imm Gran Pct Auto 0.2 % (0.0-0.4); Lymphocytes Absolute Auto 2.7 X10*3/uL (1.2-4.9); Lymphocytes Percent Auto 44.5 % (20-40); Mean Corpuscular HGB Conc 33.4 g/dl (31.0-35.0); Mean Corpuscular Hemoglobin 31.1 pg (27.0-33.0); Mean Corpuscular Volume 93.1 fL (80.0-98.0); Mean Platelet Volume 10.8 fL (9.4-12.3); Monocytes Absolute Auto 0.5 X10*3/uL (0.1-1.2); Monocytes Percent Auto 8.5 % (2-11); Neutrophils Absolute Auto 2.5 x10*3/uL (2.0-8.3); Neutrophils Percent Auto 41.5 % (45-73); Platelet Count 215 X10*3/uL (160-400); Red Blood Count 3.76 X10*6/uL (4.20-5.50); Red Cell Distribution Width 11.9 % (11.0-16.0); White Blood Count 6.1 X10*3/uL (4.8-10.8)
[2021-10-27 12:37] LABS: Erythrocyte Sedimentation Rate 6 MM/HR (0-20)
[2021-10-27 12:42] LABS: Alanine Aminotransferase 14 U/L (0-31); Albumin Level 3.9 g/dL (3.5-5.0); Alkaline Phosphatase 48 U/L (39-117); Anion Gap 14 (12-20); Aspartate Amino Transferase 14 U/L (5-31); Bilirubin Total 1.1 mg/dL (0.0-1.0); Blood Urea Nitrogen 13 mg/dL (9-16); C Reactive Protein 0.11 mg/dL (< or = 0.50); Calcium 8.8 mg/dL (8.4-10.2); Carbon Dioxide 20 mmol/L (22-29); Chloride 105 mmol/L (96-108); Estimated Glomerular Filt Rate 42; Glucose Random 176 mg/dL (60-115); Sodium 135 mmol/L (135-145); Total Protein 6.4 g/dL (6.5-8.0)
[2021-10-27 12:58] LABS: Estimated Average Glucose 197 mg/dL; Hemoglobin A1c % 8.5 %
== END 2021-10-27 06:07 | disposition home or self-care (01) ==
LOC: HO.HMGCLDS 06:06
PROVIDERS: PCP Nurse Practitioner Family; Visit Provider Nurse Practitioner Family
DX: M05.741 Rheumatoid arthritis with rheumatoid factor of right hand without organ or systems involvement (principal); M05.742 Rheumatoid arthritis with rheumatoid factor of left hand without organ or systems involvement; E10.29 Type 1 diabetes mellitus with other diabetic kidney complication
CPT/HCPCS: 36415; 80053; 83036; 85025; 85652; 86140

== ENCOUNTER → 2021-11-04 14:23 | Outpatient (BNVA) | payer OTHER, SELFPAY | PROVIDERS: PCP Nurse Practitioner Family; Visit Provider Nurse Practitioner Family | DX: Z13.89 Encounter for screening for other disorder (principal) ==

== ENCOUNTER → 2021-11-22 14:50 | Outpatient (BNVA) | payer OTHER, SELFPAY | PROVIDERS: PCP Nurse Practitioner Family; Visit Provider Nurse Practitioner Family | DX: Z13.89 Encounter for screening for other disorder (principal) ==

== ENCOUNTER 2022-01-13 11:24 | Outpatient (REF) | payer OTHER, SELFPAY ==
[2022-01-13 12:11] LABS: Influenza A PCR NEGATIVE (Negative); Influenza B PCR NEGATIVE (Negative); Resp Syncy Virus RNA Qual PCR NEGATIVE (Negative); SARS COV2 PCR INHOUSE POSITIVE (Negative)
== END 2022-01-13 11:25 | disposition home or self-care (01) ==
LOC: HO.LNP 11:24
PROVIDERS: Visit Provider Internal Medicine
DX: Z20.822 Contact with and (suspected) exposure to COVID-19 (principal); J02.9 Acute pharyngitis, unspecified; R05.9 Cough, unspecified; R09.81 Nasal congestion; R52 Pain, unspecified
CPT/HCPCS: 0241U

== ENCOUNTER → 2022-03-10 09:06 | Outpatient (BNVA) | payer OTHER, SELFPAY | PROVIDERS: PCP Nurse Practitioner Family; Visit Provider Nurse Practitioner Psychiatric/Mental Health | DX: F10.20 Alcohol dependence, uncomplicated (principal); Z51.81 Encounter for therapeutic drug level monitoring; Z79.899 Other long term (current) drug therapy | CPT/HCPCS: 80305 ==

== ENCOUNTER 2022-03-23 13:16 | Outpatient (REF) | payer OTHER, SELFPAY ==
[2022-03-23 16:21] LABS: MANUAL DIFF FLAG NO
[2022-03-23 16:31] LABS: Basophils Absolute Auto 0.1 X10*3/uL (0.0-0.2); Eosinophils Absolute Auto 0.1 X10*3/uL (0.0-0.4); Hematocrit 37.8 % (37.0-47.0); Hemoglobin 12.9 g/dl (12.0-16.0); Imm Gran Abs Auto 0.03 X10*3/uL (0.00-0.03); Imm Gran Pct Auto 0.3 % (0.0-0.4); Lymphocytes Absolute Auto 2.5 X10*3/uL (1.2-4.9); Lymphocytes Percent Auto 25.2 % (20-40); Mean Corpuscular HGB Conc 34.1 g/dl (31.0-35.0); Mean Corpuscular Hemoglobin 31.5 pg (27.0-33.0); Mean Corpuscular Volume 92.2 fL (80.0-98.0); Mean Platelet Volume 11.1 fL (9.4-12.3); Monocytes Absolute Auto 0.5 X10*3/uL (0.1-1.2); Monocytes Percent Auto 5.1 % (2-11); Neutrophils Absolute Auto 6.5 x10*3/uL (2.0-8.3); Neutrophils Percent Auto 67.4 % (45-73); Platelet Count 325 X10*3/uL (160-400); White Blood Count 9.7 X10*3/uL (4.8-10.8)
[2022-03-23 17:04] LABS: Erythrocyte Sedimentation Rate 12 MM/HR (0-20)
[2022-03-23 18:39] LABS: Alanine Aminotransferase 9 U/L (0-31); Alkaline Phosphatase 77 U/L (39-117); Anion Gap 18 (12-20); Aspartate Amino Transferase 14 U/L (5-31); Blood Urea Nitrogen 16 mg/dL (9-16); C Reactive Protein 1.02 mg/dL (< or = 0.50); Calcium 9.2 mg/dL (8.4-10.2); Carbon Dioxide 23 mmol/L (22-29); Chloride 101 mmol/L (96-108); Cholesterol 228 mg/dL; Estimated Glomerular Filt Rate 39; Glucose Random 202 mg/dL (60-115); HDL Cholesterol 55 mg/dL; LDL Cholesterol Calculated 128 mg/dl; Potassium 4.9 mmol/L (3.3-5.1); Sodium 137 mmol/L (135-145); Total Protein 7.1 g/dL (6.5-8.0); Triglycerides 229 mg/dL
[2022-03-23 20:38] LABS: Reflex LDLD? No
== END 2022-03-23 13:17 | disposition home or self-care (01) ==
LOC: HO.HMGCLDS 13:16
PROVIDERS: PCP Nurse Practitioner Family; Visit Provider Nurse Practitioner Family
DX: M05.741 Rheumatoid arthritis with rheumatoid factor of right hand without organ or systems involvement (principal); M05.742 Rheumatoid arthritis with rheumatoid factor of left hand without organ or systems involvement
CPT/HCPCS: 36415; 80053; 80061; 85025; 85652; 86140

== ENCOUNTER 2022-07-18 06:14 | Outpatient (REF) | payer OTHER, SELFPAY ==
[2022-07-18 11:30] LABS: MANUAL DIFF FLAG NO
[2022-07-18 11:45] LABS: Basophils Absolute Auto 0.1 X10*3/uL (0.0-0.2); Basophils Percent Auto 0.7 % (0-2); Eosinophils Absolute Auto 0.1 X10*3/uL (0.0-0.4); Hematocrit 36.1 % (37.0-47.0); Hemoglobin 11.9 g/dl (12.0-16.0); Imm Gran Abs Auto 0.05 X10*3/uL (0.00-0.03); Imm Gran Pct Auto 0.5 % (0.0-0.4); Lymphocytes Absolute Auto 2.9 X10*3/uL (1.2-4.9); Lymphocytes Percent Auto 26.3 % (20-40); Mean Corpuscular Volume 90.9 fL (80.0-98.0); Mean Platelet Volume 10.2 fL (9.4-12.3); Monocytes Absolute Auto 0.7 X10*3/uL (0.1-1.2); Monocytes Percent Auto 6.6 % (2-11); Neutrophils Absolute Auto 7.1 x10*3/uL (2.0-8.3); Neutrophils Percent Auto 64.9 % (45-73); Platelet Count 445 X10*3/uL (160-400); Red Blood Count 3.97 X10*6/uL (4.20-5.50); Red Cell Distribution Width 12.5 % (11.0-16.0)
[2022-07-18 12:13] LABS: Alanine Aminotransferase 7 U/L (0-31); Albumin Level 3.7 g/dL (3.5-5.0); Alkaline Phosphatase 78 U/L (39-117); Anion Gap 14 (12-20); Aspartate Amino Transferase 13 U/L (5-31); Bilirubin Total 0.7 mg/dL (0.0-1.0); Blood Urea Nitrogen 11 mg/dL (9-16); C Reactive Protein 1.62 mg/dL (< or = 0.50); Calcium 8.7 mg/dL (8.4-10.2); Carbon Dioxide 21 mmol/L (22-29); Chloride 105 mmol/L (96-108); Estimated Glomerular Filt Rate 48; Glucose Random 111 mg/dL (60-115); Potassium 3.9 mmol/L (3.3-5.1); Sodium 136 mmol/L (135-145); Total Protein 6.6 g/dL (6.5-8.0)
[2022-07-18 12:15] LABS: Erythrocyte Sedimentation Rate 36 MM/HR (0-20)
== END 2022-07-18 06:15 | disposition home or self-care (01) ==
LOC: HO.HMGCLDS 06:14
PROVIDERS: PCP Nurse Practitioner Family; Visit Provider Nurse Practitioner Family
DX: M05.742 Rheumatoid arthritis with rheumatoid factor of left hand without organ or systems involvement (principal); M05.741 Rheumatoid arthritis with rheumatoid factor of right hand without organ or systems involvement
CPT/HCPCS: 36415; 80053; 85025; 85652; 86140

== ENCOUNTER → 2022-09-06 14:15 | Outpatient (BNVA) | payer OTHER, SELFPAY | PROVIDERS: PCP Nurse Practitioner Family; Visit Provider Nurse Practitioner Family | DX: Z13.89 Encounter for screening for other disorder (principal) ==

== ENCOUNTER 2022-09-08 11:05 | Outpatient (REF) | payer OTHER, SELFPAY ==
[2022-09-08 13:47] LABS: MANUAL DIFF FLAG NO
[2022-09-08 13:56] LABS: Basophils Absolute Auto 0.1 X10*3/uL (0.0-0.2); Basophils Percent Auto 0.7 % (0-2); Eosinophils Percent Auto 0.3 % (0-4); Hematocrit 37.2 % (37.0-47.0); Hemoglobin 12.2 g/dl (12.0-16.0); Imm Gran Abs Auto 0.04 X10*3/uL (0.00-0.03); Imm Gran Pct Auto 0.3 % (0.0-0.4); Lymphocytes Absolute Auto 2.7 X10*3/uL (1.2-4.9); Lymphocytes Percent Auto 22.9 % (20-40); Mean Corpuscular HGB Conc 32.8 g/dl (31.0-35.0); Mean Corpuscular Hemoglobin 29.3 pg (27.0-33.0); Mean Corpuscular Volume 89.2 fL (80.0-98.0); Monocytes Absolute Auto 0.4 X10*3/uL (0.1-1.2); Monocytes Percent Auto 3.7 % (2-11); Neutrophils Absolute Auto 8.6 x10*3/uL (2.0-8.3); Neutrophils Percent Auto 72.1 % (45-73); Platelet Count 461 X10*3/uL (160-400); Red Blood Count 4.17 X10*6/uL (4.20-5.50); Red Cell Distribution Width 12.6 % (11.0-16.0); White Blood Count 11.9 X10*3/uL (4.8-10.8)
[2022-09-08 14:28] LABS: Alanine Aminotransferase 8 U/L (0-31); Alkaline Phosphatase 90 U/L (39-117); Anion Gap 16 (12-20); Aspartate Amino Transferase 10 U/L (5-31); Bilirubin Total 0.9 mg/dL (0.0-1.0); Blood Urea Nitrogen 14 mg/dL (9-16); C Reactive Protein 1.86 mg/dL (< or = 0.50); Calcium 8.9 mg/dL (8.4-10.2); Carbon Dioxide 20 mmol/L (22-29); Chloride 101 mmol/L (96-108); Estimated Glomerular Filt Rate 41; Glucose Random 268 mg/dL (60-115); Potassium 4.4 mmol/L (3.3-5.1); Sodium 133 mmol/L (135-145); Total Protein 7.3 g/dL (6.5-8.0)
[2022-09-08 14:37] LABS: Erythrocyte Sedimentation Rate 31 MM/HR (0-20)
[2022-09-09 07:08] LABS: HBc Num1 0.11 S/CO (0.00-0.79); HBsAGNum1 0.22 S/CO (0.00-0.99); Hepatitis A Antibody IgM 0.18 Index (0-0.79); Hepatitis B Core Antibody Nonreactive (Nonreactive); Hepatitis B Surface Antigen Negative (Negative); ~HepC Num1 0.15 S/CO (0.00-0.79); ~Hepatitis A Antibody IgM Nonreactive (Nonreactive); ~Hepatitis B Surface Antibody NONREACTIVE (Nonreactive); ~Hepatitis C Antibody Nonreactive (Nonreactive)
[2022-09-11 19:28] LABS: TS Negative Control Passed; TS Panel A 0; TS Panel B 0; TS Positive Control Passed; TSpotTB Negative (Negative)
== END 2022-09-08 11:06 | disposition home or self-care (01) ==
LOC: HO.HMGCLDS 11:05
PROVIDERS: PCP Nurse Practitioner Family; Visit Provider Nurse Practitioner Family
DX: Z11.1 Encounter for screening for respiratory tuberculosis (principal); M05.742 Rheumatoid arthritis with rheumatoid factor of left hand without organ or systems involvement; M05.741 Rheumatoid arthritis with rheumatoid factor of right hand without organ or systems involvement
CPT/HCPCS: 36415; 80053; 85025; 85652; 86140; 86481; 86704; 86706; 86709; 86803; 87340

== ENCOUNTER 2022-09-27 11:19 | Outpatient (REF) | payer OTHER, SELFPAY ==
[2022-09-27 13:52] LABS: MANUAL DIFF FLAG NO
[2022-09-27 13:54] LABS: Basophils Absolute Auto 0.1 X10*3/uL (0.0-0.2); Basophils Percent Auto 0.9 % (0-2); Eosinophils Percent Auto 0.1 % (0-4); Hematocrit 37.1 % (37.0-47.0); Hemoglobin 12.2 g/dl (12.0-16.0); Imm Gran Abs Auto 0.03 X10*3/uL (0.00-0.03); Imm Gran Pct Auto 0.3 % (0.0-0.4); Lymphocytes Absolute Auto 2.4 X10*3/uL (1.2-4.9); Lymphocytes Percent Auto 22.6 % (20-40); Mean Corpuscular HGB Conc 32.9 g/dl (31.0-35.0); Mean Corpuscular Hemoglobin 29.1 pg (27.0-33.0); Mean Corpuscular Volume 88.5 fL (80.0-98.0); Mean Platelet Volume 9.9 fL (9.4-12.3); Monocytes Absolute Auto 0.6 X10*3/uL (0.1-1.2); Monocytes Percent Auto 5.8 % (2-11); Neutrophils Absolute Auto 7.4 x10*3/uL (2.0-8.3); Neutrophils Percent Auto 70.3 % (45-73); Platelet Count 354 X10*3/uL (160-400); Red Blood Count 4.19 X10*6/uL (4.20-5.50); Red Cell Distribution Width 12.9 % (11.0-16.0); White Blood Count 10.5 X10*3/uL (4.8-10.8)
[2022-09-27 14:11] LABS: Alanine Aminotransferase 23 U/L (0-31); Albumin Level 4.2 g/dL (3.5-5.0); Alkaline Phosphatase 93 U/L (39-117); Anion Gap 15 (12-20); Aspartate Amino Transferase 23 U/L (5-31); Bilirubin Total 1.1 mg/dL (0.0-1.0); Blood Urea Nitrogen 24 mg/dL (9-16); Calcium 9.8 mg/dL (8.4-10.2); Carbon Dioxide 25 mmol/L (22-29); Chloride 102 mmol/L (96-108); Estimated Glomerular Filt Rate 39; Glucose Random 281 mg/dL (60-115); Potassium 4.7 mmol/L (3.3-5.1); Sodium 137 mmol/L (135-145); Total Protein 7.3 g/dL (6.5-8.0)
== END 2022-09-27 11:20 | disposition home or self-care (01) ==
LOC: HO.HMGCLDS 11:19
PROVIDERS: PCP Nurse Practitioner Family; Visit Provider Nurse Practitioner Family
DX: M05.742 Rheumatoid arthritis with rheumatoid factor of left hand without organ or systems involvement (principal); M05.741 Rheumatoid arthritis with rheumatoid factor of right hand without organ or systems involvement
CPT/HCPCS: 36415; 80053; 85025

== ENCOUNTER 2022-10-14 11:12 | Outpatient (REF) | payer OTHER, SELFPAY ==
[2022-10-14 12:48] LABS: MANUAL DIFF FLAG NO
[2022-10-14 12:52] LABS: Basophils Absolute Auto 0.1 X10*3/uL (0.0-0.2); Basophils Percent Auto 0.9 % (0-2); Eosinophils Absolute Auto 0.2 X10*3/uL (0.0-0.4); Eosinophils Percent Auto 2.7 % (0-4); Hematocrit 37.3 % (37.0-47.0); Hemoglobin 12.1 g/dl (12.0-16.0); Imm Gran Abs Auto 0.03 X10*3/uL (0.00-0.03); Imm Gran Pct Auto 0.3 % (0.0-0.4); Lymphocytes Absolute Auto 2.5 X10*3/uL (1.2-4.9); Lymphocytes Percent Auto 28.6 % (20-40); Mean Corpuscular HGB Conc 32.4 g/dl (31.0-35.0); Mean Corpuscular Hemoglobin 29.2 pg (27.0-33.0); Mean Corpuscular Volume 89.9 fL (80.0-98.0); Mean Platelet Volume 9.7 fL (9.4-12.3); Monocytes Absolute Auto 0.6 X10*3/uL (0.1-1.2); Monocytes Percent Auto 6.3 % (2-11); Neutrophils Absolute Auto 5.4 x10*3/uL (2.0-8.3); Neutrophils Percent Auto 61.2 % (45-73); Platelet Count 329 X10*3/uL (160-400); Red Blood Count 4.15 X10*6/uL (4.20-5.50); Red Cell Distribution Width 13.4 % (11.0-16.0); White Blood Count 8.9 X10*3/uL (4.8-10.8)
[2022-10-14 13:33] LABS: Alanine Aminotransferase 32 U/L (0-31); Albumin Level 4.2 g/dL (3.5-5.0); Alkaline Phosphatase 105 U/L (39-117); Anion Gap 12 (12-20); Aspartate Amino Transferase 23 U/L (5-31); Blood Urea Nitrogen 21 mg/dL (9-16); C Reactive Protein < 0.10 mg/dL (< or = 0.50); Calcium 9.5 mg/dL (8.4-10.2); Carbon Dioxide 26 mmol/L (22-29); Chloride 104 mmol/L (96-108); Cholesterol 337 mg/dL; Estimated Glomerular Filt Rate 38; Glucose Random 122 mg/dL (60-115); HDL Cholesterol 62 mg/dL; Potassium 4.4 mmol/L (3.3-5.1); Sodium 138 mmol/L (135-145); Total Protein 7.1 g/dL (6.5-8.0); Triglycerides 418 mg/dL
[2022-10-14 13:38] LABS: Erythrocyte Sedimentation Rate 7 MM/HR (0-20)
[2022-10-14 13:51] LABS: Reflex LDLD? Yes
[2022-10-16 18:43] LABS: LDL Cholesterol Direct 197 mg/dL (<100)
== END 2022-10-14 11:13 | disposition home or self-care (01) ==
LOC: HO.HMGCLDS 11:12
PROVIDERS: Visit Provider Nurse Practitioner Family
DX: M05.741 Rheumatoid arthritis with rheumatoid factor of right hand without organ or systems involvement (principal); M05.742 Rheumatoid arthritis with rheumatoid factor of left hand without organ or systems involvement; Z79.899 Other long term (current) drug therapy
CPT/HCPCS: 36415; 80053; 80061; 83721; 85025; 85652; 86140

== ENCOUNTER → 2022-10-18 13:46 | Outpatient (BNVA) | payer OTHER, SELFPAY | PROVIDERS: PCP Nurse Practitioner Family; Visit Provider Nurse Practitioner Family | DX: Z13.89 Encounter for screening for other disorder (principal) ==

== ENCOUNTER 2022-11-08 06:19 | Outpatient (REF) | payer OTHER, SELFPAY ==
[2022-11-08 11:32] LABS: MANUAL DIFF FLAG NO
[2022-11-08 11:37] LABS: Appearance Urine Cloudy; Color Urine Yellow; Glucose Urine UA Negative (Negative); Leukocyte Esterase Urine Large (3+) (Negative); Nitrite Urine Negative (Negative); PH 5.5 (5.0-9.0); Specific Gravity - Urine <= 1.005 (1.005-1.025); UMIC TRIGGER UACC YES; Urine Blood Trace (Negative); Urine Ketones Negative (Negative); Urine Protein Negative (Neg-Trace)
[2022-11-08 11:43] LABS: Basophils Absolute Auto 0.1 X10*3/uL (0.0-0.2); Basophils Percent Auto 1.1 % (0-2); Eosinophils Absolute Auto 0.3 X10*3/uL (0.0-0.4); Eosinophils Percent Auto 5.4 % (0-4); Hematocrit 36.5 % (37.0-47.0); Hemoglobin 12.2 g/dl (12.0-16.0); Imm Gran Abs Auto 0.02 X10*3/uL (0.00-0.03); Imm Gran Pct Auto 0.3 % (0.0-0.4); Lymphocytes Absolute Auto 2.5 X10*3/uL (1.2-4.9); Lymphocytes Percent Auto 39.8 % (20-40); Mean Corpuscular HGB Conc 33.4 g/dl (31.0-35.0); Mean Corpuscular Hemoglobin 29.6 pg (27.0-33.0); Mean Corpuscular Volume 88.6 fL (80.0-98.0); Mean Platelet Volume 9.7 fL (9.4-12.3); Monocytes Absolute Auto 0.6 X10*3/uL (0.1-1.2); Monocytes Percent Auto 9.6 % (2-11); Neutrophils Absolute Auto 2.8 x10*3/uL (2.0-8.3); Neutrophils Percent Auto 43.8 % (45-73); Platelet Count 303 X10*3/uL (160-400); Red Blood Count 4.12 X10*6/uL (4.20-5.50); Red Cell Distribution Width 13.3 % (11.0-16.0); White Blood Count 6.4 X10*3/uL (4.8-10.8)
[2022-11-08 11:44] LABS: Bacteria Urine 4+ (None Seen); Hyaline Casts Urine 0-2 /LPF (0-2); RBC Urine 0-2 /HPF (0-2); UACC Culture Trigger YES; WBC Urine 21-50 /HPF (0-5)
[2022-11-08 11:51] LABS: Estimated Average Glucose 217 mg/dL; Hemoglobin A1c % 9.2 %
[2022-11-08 12:15] LABS: Alanine Aminotransferase 26 U/L (0-31); Albumin Level 4.3 g/dL (3.5-5.0); Alkaline Phosphatase 82 U/L (39-117); Anion Gap 11 (12-20); Aspartate Amino Transferase 29 U/L (5-31); Bilirubin Total 1.2 mg/dL (0.0-1.0); Blood Urea Nitrogen 15 mg/dL (9-16); Calcium 9.4 mg/dL (8.4-10.2); Carbon Dioxide 25 mmol/L (22-29); Chloride 106 mmol/L (96-108); Cholesterol 309 mg/dL; Estimated Glomerular Filt Rate 44; Glucose Fasting 115 mg/dL (60-99); HDL Cholesterol 61 mg/dL; LDL Cholesterol Calculated 198 mg/dl; Potassium 4.3 mmol/L (3.3-5.1); Sodium 138 mmol/L (135-145); TSH reflex Free T4 2.89 uIU/mL (0.32-4.0); Total Protein 6.8 g/dL (6.5-8.0); Triglycerides 250 mg/dL; Vitamin D 25-OH Total 8.1 ng/mL (>30)
[2022-11-08 12:26] LABS: Creatinine Urine 45.41 mg/dL; Microalbum/Creatinine Ratio Ur 52.8 ug/mg cr
== END 2022-11-08 06:20 | disposition home or self-care (01) ==
LOC: HO.HMGCLDS 06:19
PROVIDERS: PCP Nurse Practitioner Family; Visit Provider Nurse Practitioner Family
DX: E10.40 Type 1 diabetes mellitus with diabetic neuropathy, unspecified (principal); R82.90 Unspecified abnormal findings in urine; Z78.0 Asymptomatic menopausal state; E55.9 Vitamin D deficiency, unspecified
CPT/HCPCS: 36415; 80053; 80061; 81001; 82043; 82306; 83036; 84443; 85025; 87086; 87088; 87186

== ENCOUNTER 2022-11-10 13:18 | Outpatient (REF) | payer OTHER, SELFPAY ==
[2022-11-10 14:31] LABS: Influenza A PCR NEGATIVE (Negative); Influenza B PCR NEGATIVE (Negative); Resp Syncy Virus RNA Qual PCR NEGATIVE (Negative); SARS COV2 PCR INHOUSE NEGATIVE (Negative)
== END 2022-11-10 13:19 | disposition home or self-care (01) ==
LOC: HO.LNP 13:18
PROVIDERS: Visit Provider Internal Medicine
DX: R09.89 Other specified symptoms and signs involving the circulatory and respiratory systems (principal); Z20.822 Contact with and (suspected) exposure to COVID-19
CPT/HCPCS: 0241U

== ENCOUNTER 2022-11-15 11:31 | Outpatient (REF) | payer OTHER, SELFPAY ==
[2022-11-15 15:01] LABS: Influenza A PCR NEGATIVE (Negative); Influenza B PCR NEGATIVE (Negative); Resp Syncy Virus RNA Qual PCR NEGATIVE (Negative); SARS COV2 PCR INHOUSE NEGATIVE (Negative)
== END 2022-11-15 11:32 | disposition home or self-care (01) ==
LOC: HO.LAB 11:31
PROVIDERS: Visit Provider Nurse Practitioner Family
DX: Z20.822 Contact with and (suspected) exposure to COVID-19 (principal); R09.89 Other specified symptoms and signs involving the circulatory and respiratory systems
CPT/HCPCS: 0241U

== ENCOUNTER 2022-12-30 11:03 | Outpatient (REF) | payer OTHER, SELFPAY ==
[2022-12-30 14:06] LABS: MANUAL DIFF FLAG NO
[2022-12-30 14:17] LABS: Basophils Absolute Auto 0.1 X10*3/uL (0.0-0.2); Basophils Percent Auto 1.1 % (0-2); Eosinophils Absolute Auto 0.2 X10*3/uL (0.0-0.4); Eosinophils Percent Auto 3.2 % (0-4); Hematocrit 38.4 % (37.0-47.0); Hemoglobin 12.5 g/dl (12.0-16.0); Imm Gran Abs Auto 0.01 X10*3/uL (0.00-0.03); Imm Gran Pct Auto 0.1 % (0.0-0.4); Lymphocytes Absolute Auto 2.7 X10*3/uL (1.2-4.9); Mean Corpuscular HGB Conc 32.6 g/dl (31.0-35.0); Mean Corpuscular Volume 92.3 fL (80.0-98.0); Mean Platelet Volume 10.2 fL (9.4-12.3); Monocytes Absolute Auto 0.4 X10*3/uL (0.1-1.2); Monocytes Percent Auto 6.1 % (2-11); Neutrophils Absolute Auto 3.8 x10*3/uL (2.0-8.3); Neutrophils Percent Auto 52.5 % (45-73); Platelet Count 349 X10*3/uL (160-400); Red Blood Count 4.16 X10*6/uL (4.20-5.50); Red Cell Distribution Width 13.3 % (11.0-16.0); White Blood Count 7.3 X10*3/uL (4.8-10.8)
[2022-12-30 14:36] LABS: Alanine Aminotransferase 53 U/L (0-31); Albumin Level 4.5 g/dL (3.5-5.0); Alkaline Phosphatase 101 U/L (39-117); Anion Gap 14 (12-20); Aspartate Amino Transferase 57 U/L (5-31); Bilirubin Total 1.1 mg/dL (0.0-1.0); Blood Urea Nitrogen 21 mg/dL (9-16); C Reactive Protein 0.13 mg/dL (< or = 0.50); Calcium 10.3 mg/dL (8.4-10.2); Carbon Dioxide 26 mmol/L (22-29); Chloride 101 mmol/L (96-108); Estimated Glomerular Filt Rate 42; Glucose Random 131 mg/dL (60-115); Potassium 4.4 mmol/L (3.3-5.1); Sodium 137 mmol/L (135-145); Total Protein 7.8 g/dL (6.5-8.0)
[2022-12-30 15:56] LABS: Erythrocyte Sedimentation Rate 15 MM/HR (0-20)
== END 2022-12-30 11:04 | disposition home or self-care (01) ==
LOC: HO.HMGCLDS 11:03
PROVIDERS: PCP Nurse Practitioner Family; Visit Provider Nurse Practitioner Family
DX: M05.742 Rheumatoid arthritis with rheumatoid factor of left hand without organ or systems involvement (principal); M05.741 Rheumatoid arthritis with rheumatoid factor of right hand without organ or systems involvement
CPT/HCPCS: 36415; 80053; 85025; 85652; 86140

== ENCOUNTER → 2023-01-05 07:48 | Outpatient (BNVA) | payer OTHER, SELFPAY | PROVIDERS: PCP Nurse Practitioner Family; Visit Provider Internal Medicine Rheumatology ==

== ENCOUNTER 2023-02-27 15:06 | Outpatient (AMB) | payer OTHER, SELFPAY ==
[2023-02-27 15:24] VITALS: BP 160/98; PULSE 94; O2SAT 99; BMI 28.2
--- NOTE | 2023-02-27 15:24 | A.OFFPC_ITS ---
Vital Signs 02/27/23 15:24 Height 5 ft 6 in Weight 174 lb 8 oz BMI 28.2 BP 160/98 H Blood Pressure Location Lt brachial Position Sitting Pulse 94 Pulse Source Pulse Oximeter Pulse Oximetry (%) 99 Oxygen Delivery Method Room Air Intake Visit Reasons: 3m follow up Allergies Iodinated Contrast Media [CONTRAST, IV] Allergy (Severe, Verified 02/27/23 15:27) ANAPHYLAXIS sarilumab [From Kevzara] Allergy (Verified 02/27/23 15:27) injeciton site reaction Medication List - Last Reconciled 02/27/23 by Nils Barker, [employer] HEL[employer]- atorvastatin 20 mg PO BEDTIME 90 days blood sugar diagnostic As directed blood sugar diagnostic (FreeStyle Lite Strips) test 3 times every day blood-glucose meter (FreeStyle Lite Meter kit) test 3 times every day blood-glucose meter,continuous (Dexcom G6 Ciaio Counter Molder) As directed blood-glucose sensor (Dexcom G6 Sensor device) tid testing blood-glucose transmitter (Dexcom G6 Transmitter device) As directed flash glucose scanning reader ([employer]ology [employer] Irvin 14 Day [place]) As directed flash glucose sensor (FreeStyle Irvin 14 Day Sensor kit) daily use gabapentin 800 mg PO BEDTIME insulin glargine (Lantus Solostar U-100 Insulin) 24 units (0.24 mL) subcut BEDTIME insulin lispro (Humalog KwikPen (U-100) Insulin) Sliding scale coverage subcut .3 times a day a.c. losartan 25 mg PO DAILY Tobacco use date assessed: 02/27/23 Dental Screening Dental Screen Date: 02/27/23 Did you have a dental visit in the last 12 months?: Yes Did you have a dental problem in the last 6 months where you did not have access to dental care?: No Was dental information given to patient?: Patient has dentist HPI 3m follow up HPI Details Pt is a diabetic. Due for A1c, will order. Microalbumin is up to date. Denies polyuria, polydipsia, and neuropathy. Pt denies any signs and symptoms of hypoglycemia and does know how to correct it. Pt reports that her blood sugar is in the 250s-300s especially in the morning. Pt is very worried that her blood sugar will go too low, though she has a sensor that will alert her if she drops below 70. She will adjust her sensor so it alerts her if she goes below 90. She reports only taking 18 units of lantus. Will have her increase this to 24 units, may increased by 2 units until morning blood sugar gets closer to 150. She reports not taking her meal time insulin as often as she should. Eye exam is up to date. Will start ARB (elevated bp today) and statin. Explained the dangers of uncontrolled diabetes. [facility] Medical History (Updated 02/27/23 @ 15:58 by STU Mcconnell) Alcohol intake above recommended sensible limits Dyslipidemia Fracture of fifth metatarsal bone of left foot Rheumatoid arthritis involving both hands with positive rheumatoid factor Type 1 diabetes mellitus with diabetic neuropathy Type 1 diabetes mellitus with hyperglycemia Type 1 diabetes mellitus with kidney complication Surgical History History of breast implant History of colonoscopy History of inguinal hernia repair Family History Father No problems noted. Mother CVD (cardiovascular disease) Social History Alcohol intake: current Alcohol intake frequency: 0-2 drinks per day Patient Tobacco Use Status: Never used Tobacco Current occupational status: employed Current occupation: [employer] Current occupational exposures/hazards: Yes Cognitive needs: No Hearing needs: No Vision needs: No Review of Systems Const Reports as per HPI Physical exam (Primary Care) Vital Signs: Last Vital Signs Pulse 94 02/27/23 15:24 BP 160/98 H 02/27/23 15:24 Pulse Ox 99 02/27/23 15:24 Oxygen Delivery Method Room Air 02/27/23 15:24 BMI result Body Mass Index 28.2 Tobacco/Smoking Status: Tobacco use Status Tobacco use date assessed 02/27/23 02/27/23 15:31 Patient Tobacco Use Status Never used Tobacco 02/27/23 15:26 Const General: cooperative Orientation/consciousness: patient oriented x3 Resp Effort & Inspection: normal respiratory effort Auscultation: clear to auscultation bilaterally Cardio Rate: regular rate Rhythm: regular rhythm Heart sounds: S1 normal heart sound present and S2 normal heart sound present Neuro General: patient oriented x3 Extrem Other: bilat feet: + sensation with use of monofilament, feet intact without lesions Right lower extremity: no edema Left lower extremity: no edema Psych Appearance: grossly normal Mental Status: mental status grossly normal Speech and movement: Normal speech and movement present Affect: normal affect Attitude: cooperative Thought process: Normal thought process present Thought content: Normal thought content present Insight: Good insight present (Psych) Judgement: Good judgement present (Psych) Assessment and Plan Assessment & Plan (1) Type 1 diabetes mellitus with diabetic neuropathy: Code(s): E10.40 - Type 1 diabetes mellitus with diabetic neuropathy, unspecified (2) Vitamin D deficiency: Code(s): E55.9 - Vitamin D deficiency, unspecified Plan The patient agreed to the use of a biomedical engineering aide for this encounter. Scribed for STU Perry by Nicole Ward biomedical engineering aide, on 02/27/2023 at 15:30 EST. Orders: Orders Complete Blood Count Auto Diff Today E10.40 - Type 1 diabetes mellitus with diabetic neuropathy, unspecified Comprehensive [place]. Panel Fast Today E10.40 - Type 1 diabetes mellitus with diabetic neuropathy, unspecified TSH reflex Free T4 Today E10.40 - Type 1 diabetes mellitus with diabetic neuropathy, unspecified UA CC w/rflx Micro + Cult Today E10.40 - Type 1 diabetes mellitus with diabetic neuropathy, unspecified Lipid Panel Today E10.40 - Type 1 diabetes mellitus with diabetic neuropathy, unspecified Hemoglobin A1c Today E10.40 - Type 1 diabetes mellitus with diabetic neuropathy, unspecified Vitamin D 25-OH Total Today E55.9 - Vitamin D deficiency, unspecified Medications: New atorvastatin 20 mg PO BEDTIME 90 tabs 3RF 90 days losartan 25 mg PO DAILY 90 tabs 2RF Coding Level of Care Code Est Pt Level 3 (42255) Diagnoses Type 1 diabetes mellitus with diabetic neuropathy E10.40 Vitamin D deficiency E55.9
== END 2023-02-27 16:03 | disposition home or self-care (01) ==
PROVIDERS: Visit Provider Nurse Practitioner Family
DX: E10.40 Type 1 diabetes mellitus with diabetic neuropathy, unspecified (principal); E55.9 Vitamin D deficiency, unspecified
CPT/HCPCS: 99213

== ENCOUNTER 2023-05-16 06:25 | Outpatient (REF) | payer OTHER, SELFPAY ==
[2023-05-16 11:33] LABS: MANUAL DIFF FLAG NO
[2023-05-16 11:54] LABS: Basophils Absolute Auto 0.1 X10*3/uL (0.0-0.2); Eosinophils Absolute Auto 0.2 X10*3/uL (0.0-0.4); Eosinophils Percent Auto 3.6 % (0-4); Hematocrit 38.1 % (37.0-47.0); Hemoglobin 12.6 g/dl (12.0-16.0); Imm Gran Abs Auto 0.01 X10*3/uL (0.00-0.03); Imm Gran Pct Auto 0.2 % (0.0-0.4); Lymphocytes Absolute Auto 2.2 X10*3/uL (1.2-4.9); Lymphocytes Percent Auto 36.7 % (20-40); Mean Corpuscular HGB Conc 33.1 g/dl (31.0-35.0); Mean Corpuscular Hemoglobin 31.4 pg (27.0-33.0); Mean Platelet Volume 10.5 fL (9.4-12.3); Monocytes Absolute Auto 0.5 X10*3/uL (0.1-1.2); Monocytes Percent Auto 8.4 % (2-11); Neutrophils Absolute Auto 2.9 x10*3/uL (2.0-8.3); Neutrophils Percent Auto 50.1 % (45-73); Platelet Count 230 X10*3/uL (160-400); Red Blood Count 4.01 X10*6/uL (4.20-5.50); Red Cell Distribution Width 12.3 % (11.0-16.0); White Blood Count 5.9 X10*3/uL (4.8-10.8)
[2023-05-16 11:57] LABS: Estimated Average Glucose 197 mg/dL; Hemoglobin A1c % 8.5 % (<6.0)
[2023-05-16 12:04] LABS: Appearance Urine Clear; Color Urine Yellow; Glucose Urine UA Negative (Negative); Leukocyte Esterase Urine Trace (Negative); Nitrite Urine Negative (Negative); PH 5.5 (5.0-9.0); Specific Gravity - Urine 1.015 (1.005-1.025); UMIC TRIGGER UACC YES; Urine Blood Negative (Negative); Urine Ketones Negative (Negative); Urine Protein Negative (Neg-Trace)
[2023-05-16 12:08] LABS: Bacteria Urine 1+ (None Seen); RBC Urine 0-2 /HPF (0-2); WBC Urine 0-5 /HPF (0-5)
[2023-05-16 12:15] LABS: Alanine Aminotransferase 50 U/L (0-31); Albumin Level 4.5 g/dL (3.5-5.0); Alkaline Phosphatase 91 U/L (39-117); Anion Gap 15 (12-20); Aspartate Amino Transferase 46 U/L (5-31); Bilirubin Total 1.5 mg/dL (0.0-1.0); Blood Urea Nitrogen 15 mg/dL (9-16); C Reactive Protein < 0.10 mg/dL (< or = 0.50); Calcium 9.8 mg/dL (8.4-10.2); Carbon Dioxide 21 mmol/L (22-29); Chloride 105 mmol/L (96-108); Cholesterol 215 mg/dL (<200); Estimated Glomerular Filt Rate 36; Glucose Fasting 250 mg/dL (60-99); Glucose Random 250 mg/dL (60-115); HDL Cholesterol 58 mg/dL (>40); LDL Cholesterol Calculated 129 mg/dL (<100); Potassium 4.4 mmol/L (3.3-5.1); Sodium 137 mmol/L (135-145); Total Protein 7.3 g/dL (6.5-8.0); Triglycerides 140 mg/dL (<150)
[2023-05-16 12:35] LABS: TSH reflex Free T4 2.18 uIU/mL (0.32-4.0); Vitamin D 25-OH Total 59.8 ng/mL (>30)
[2023-05-16 12:41] LABS: Erythrocyte Sedimentation Rate 5 MM/HR (0-20)
== END 2023-05-16 06:26 | disposition home or self-care (01) ==
LOC: HO.HMGCLDS 06:25
PROVIDERS: Absent Provider Internal Medicine Rheumatology; PCP Nurse Practitioner Family; Visit Provider Nurse Practitioner Family
DX: E10.40 Type 1 diabetes mellitus with diabetic neuropathy, unspecified (principal); E55.9 Vitamin D deficiency, unspecified; M05.741 Rheumatoid arthritis with rheumatoid factor of right hand without organ or systems involvement; M05.742 Rheumatoid arthritis with rheumatoid factor of left hand without organ or systems involvement; Z79.60 Long term (current) use of unspecified immunomodulators and immunosuppressants
CPT/HCPCS: 36415; 80053; 80061; 81001; 81003; 82306; 83036; 84443; 85025; 85652; 86140

== ENCOUNTER → 2023-05-29 15:03 | Outpatient (BNVA) | payer OTHER, SELFPAY | PROVIDERS: PCP Nurse Practitioner Family; Visit Provider Internal Medicine Rheumatology ==

== ENCOUNTER 2023-05-31 15:21 | Outpatient (AMB) | payer OTHER, SELFPAY ==
--- NOTE | 2023-05-31 15:28 | A.OFFPC_ITS ---
Vital Signs 05/31/23 15:30 Height 5 ft 6 in Weight 177 lb BMI 28.6 BP 132/80 Blood Pressure Location Rt brachial Position Sitting Pulse 72 Pulse Source Pulse Oximeter Pulse Oximetry (%) 98 Oxygen Delivery Method Room Air Intake Visit Reasons: 3 month fu Allergies Iodinated Contrast Media [CONTRAST, IV] Allergy (Severe, Verified 02/27/23 15:27) ANAPHYLAXIS sarilumab [From Kevzara] Allergy (Verified 02/27/23 15:27) injeciton site reaction Medication List - Last Reconciled 05/31/23 by STU Mcconnell atorvastatin 20 mg PO BEDTIME 90 days blood sugar diagnostic As directed blood sugar diagnostic (FreeStyle Lite Strips) test 3 times every day blood-glucose meter (FreeStyle Lite Meter kit) test 3 times every day blood-glucose meter,continuous (Dexcom G6 Night Time Nanny) As directed blood-glucose sensor (Dexcom G6 Sensor device) continuous glucose monitoring blood-glucose transmitter (Dexcom G6 Transmitter device) As directed flash glucose scanning reader (HealthLinkNowStyle Irvin 14 Day [place]) As directed flash glucose sensor (FreeStyle Irvin 14 Day Sensor kit) daily use gabapentin 800 mg PO BEDTIME insulin glargine (Lantus Solostar U-100 Insulin) 24 units (0.24 mL) subcut BEDTIME insulin lispro (Humalog KwikPen (U-100) Insulin) Sliding scale coverage subcut .3 times a day a.c. losartan 25 mg PO DAILY tocilizumab (Actemra ACTPen) 162 mg (0.9 mL) subcut QWEEK Tobacco use date assessed: 02/27/23 HPI 3 month fu HPI Details diabetes: On a statin and a SALLY. Has been taking her lantus 18 units in the am, and using sliding scale around meals, though forgetting some days. She will start taking her lantus at night, 18 units, titrating up by 2 units until morning sugars are closer to 130-150. Will have her continue to use sliding scale around meals. Eye exam is up to date according to pt. Pt denies any polyuria, polydipsia, or neuropathy. [facility] Medical History Type 1 diabetes mellitus with kidney complication Fracture of fifth metatarsal bone of left foot Alcohol intake above recommended sensible limits Rheumatoid arthritis involving both hands with positive rheumatoid factor Dyslipidemia Type 1 diabetes mellitus with diabetic neuropathy Type 1 diabetes mellitus with hyperglycemia Surgical History History of breast implant History of inguinal hernia repair History of colonoscopy Family History Father No problems noted. Mother CVD (cardiovascular disease) Social History Alcohol intake: current Alcohol intake frequency: 0-2 drinks per day Patient Tobacco Use Status: Never used Tobacco Current occupational status: employed Current [place] [employer] [place] Current occupational exposures/hazards: Yes Cognitive needs: No Hearing needs: No Vision needs: No Physical exam (Primary Care) BMI result Body Mass Index 28.6 Tobacco/Smoking Status: Tobacco use Status Tobacco use date assessed 02/27/23 05/31/23 15:30 Patient Tobacco Use Status Never used Tobacco 05/31/23 15:30 Const General: cooperative Resp Effort & Inspection: normal respiratory effort Auscultation: clear to auscultation bilaterally Cardio Rate: regular rate Rhythm: regular rhythm Heart sounds: S1 normal heart sound present and S2 normal heart sound present Back/Spine/Pelvis Other: refused foot exam today Psych Appearance: grossly normal Mental Status: mental status grossly normal Speech and movement: Normal speech and movement present Affect: normal affect Attitude: cooperative Thought process: Normal thought process present Thought content: Normal thought content present Insight: Good insight present (Psych) Judgement: Good judgement present (Psych) Assessment and Plan Assessment & Plan (1) Type 1 diabetes mellitus with hyperglycemia: Code(s): E10.65 - Type 1 diabetes mellitus with hyperglycemia Orders: Orders MM screening mammo BI Today Z12.31 - Encounter for screening mammogram for malignant neoplasm of breast Coding Level of Care Code Est Pt Level 3 (46075) Diagnoses Type 1 diabetes mellitus with hyperglycemia E10.65
[2023-05-31 15:30] VITALS: BP 132/80; PULSE 72; O2SAT 98; BMI 28.6
== END 2023-05-31 16:48 | disposition home or self-care (01) ==
PROVIDERS: PCP Nurse Practitioner Family; Visit Provider Nurse Practitioner Family
DX: E10.65 Type 1 diabetes mellitus with hyperglycemia (principal)
CPT/HCPCS: 99213

== ENCOUNTER 2023-06-06 08:20 | Outpatient (REF) | payer OTHER, SELFPAY ==
--- NOTE | ~2023-06-06 | US_ITS ---
EXAMINATION: US ABDOMEN COMPLETE CLINICAL INFORMATION: Abnormal levels of other serum enzymes. Elevated liver enzymes. COMPARISON: Renals only ultrasound dated 09/11/2019 and 09/10/2019. CT abdomen and pelvis without contrast dated 09/10/2019. TECHNIQUE: Real-time imaging of the abdominal viscera. FINDINGS: PANCREAS: Talar obscured by the rest of pancreas is unremarkable. ABDOMINAL AORTA: The proximal and mid segments are normal in caliber. There are atherosclerotic changes in the distal abdominal aorta INFERIOR VENA CAVA: Visualized portions are normal. LIVER: The areas of fatty infiltration and increased echogenicity of the liver as well as simple cyst in the right lobe of the liver measures 3.6 x 3.7 x 3.3 cm. The liver is normal in size. The liver contour is normal. There is no intrahepatic biliary duct dilatation seen. GALLBLADDER: Normal. The gallbladder is physiologically distended without evidence of stones, sludge, polyps, wall thickening or pericholecystic fluid. COMMON BILE DUCT: Normal in caliber measuring 0.19 cm in diameter. RIGHT KIDNEY: There is lobulated contour but otherwise no hydronephrosis. No renal calculi or focal parenchymal lesions. The kidney measures 10.1 cm in maximum dimension. LEFT KIDNEY: The lobulated contour but otherwise no hydronephrosis. No renal calculi or focal parenchymal lesions. The kidney measures 8.9 cm in maximum dimension. SPLEEN: Normal. The spleen measures 10.0 cm in maximum dimension. FREE FLUID: None. US/US abdomen complete IMPRESSION: Hepatic steatosis and simple cyst in the right lobe of the liver.
== END 2023-06-06 08:21 | disposition home or self-care (01) ==
LOC: HO.HMGCX 08:20
PROVIDERS: PCP Nurse Practitioner Family; Visit Provider Nurse Practitioner Family
DX: R74.8 Abnormal levels of other serum enzymes (principal)
CPT/HCPCS: 76700

== ENCOUNTER 2023-06-14 15:53 | Outpatient (AMB) | payer OTHER, SELFPAY ==
--- NOTE | 2023-06-14 15:58 | HO.NEPHOV_ITS ---
HPI HPI Comments History of Present Illness Details I had the privilege of seeing Mike who is a delightful 57 year old young active working female who has been a type 1 diabetic for long years. Her last A1c, was 8.5. She has fluctuant blood sugars with some proteinuria on losartan 25 mg daily. She had decline in GFR in the past but lately her serum creatinine has settled down to 1.48. She denies polyuria, polydipsia. She denies any signs and symptoms of hypoglycemia and does know how to correct it. She is on insulin. She has hypertension and is on ARB. She is on a statin. She avoids excess NSAID's now ( but used to take excess before ) but used to consume alcohol daily but not excessively. She tries to maintain good hydration. She has RA with positive rheumatoid factor. She denies retinopathy, CAD, CHF, CVA, MONTRELL, PAD or carotid stenosis. She has no new bone or back pain. She has no epistaxis, photosensitivity, new skin rashes, lupus, hematuria, edema. She is concerned about her renal dysfunction. [facility] Medical History Type 1 diabetes mellitus with kidney complication Fracture of fifth metatarsal bone of left foot Alcohol intake above recommended sensible limits Rheumatoid arthritis involving both hands with positive rheumatoid factor Dyslipidemia Type 1 diabetes mellitus with diabetic neuropathy Type 1 diabetes mellitus with hyperglycemia Surgical History History of breast implant History of inguinal hernia repair History of colonoscopy Family History Father No problems noted. Mother CVD (cardiovascular disease) Social History Alcohol intake: current Alcohol intake frequency: 0-2 drinks per day Patient Tobacco Use Status: Never used Tobacco Current occupational status: employed [place] [employer] [place] Current occupational exposures/hazards: Yes Cognitive needs: No Hearing needs: No Vision needs: No Vital Signs 06/14/23 15:59 Height 5 ft 6 in Weight 174 lb 4 oz BMI 28.1 BP 132/82 Blood Pressure Location Lt brachial Position Sitting Pulse 86 Pulse Source Pulse Oximeter Physical Exam Vital Signs: Last Vital Signs Pulse 86 11/15/23 15:59 BP 132/82 06/14/23 15:59 BMI result Body Mass Index 28.1 Const General: comfortable and no acute distress Orientation/consciousness: patient oriented x3 HEENT Head: Yes normocephalic Mouth: Normal oral and palatal mucosa present Eyes EOM: EOMs intact bilaterally Neck Neck: Yes supple Resp Auscultation: clear to auscultation bilaterally Cardio Jugular venous distension: no JVD Rate: regular rate GI Palpation (GI): Soft to palpation Auscultation: normal bowel sounds General: Yes no CVA tenderness Back/Spine/Pelvis Back: no CVA tenderness Skin General skin exam: no rashes or lesions noted Neuro General: patient oriented x3 and moves all extremities Extrem General: Yes no pedal edema Assessment & Plan Assessment & Plan (1) CKD (chronic kidney disease) stage 3, GFR 30-59 ml/min: Code(s): N18.30 - Chronic kidney disease, stage 3 unspecified Qualifiers: Chronic kidney disease stage 3 subtype: stage 3a (GFR 45-59) Qualified Code(s): N18.31 - Chronic kidney disease, stage 3a (2) Hypertension: Code(s): I10 - Essential (primary) hypertension Qualifiers: Hypertension type: primary hypertension Qualified Code(s): I10 - Essential (primary) hypertension (3) Type 1 diabetes mellitus with kidney complication: Code(s): E10.29 - Type 1 diabetes mellitus with other diabetic kidney complication Qualifiers: Chronic kidney disease stage: stage 3 (moderate) Diabetes mellitus complication detail: with chronic kidney disease Chronic kidney disease stage 3 subtype: stage 3a (GFR 45-59) Qualified Code(s): E10.22 - Type 1 diabetes mellitus with diabetic chronic kidney disease; N18.31 - Chronic kidney disease, stage 3a Plan Mike has CKD 3 likely due to long standing DM and or vascular disease. She has mild proteinuria. She had ANGEL in the past but her serum creatinine is back to baseline. I have ordered work up including ANCA. She is on ARB. I shall try to maximize the dose of ARB based on her tolerance to it especially K and serum creatinine. She needs to maintain better HbA1c and keep up with good hydration. She is not a candidate for Jardiance or Farxiga given she is Type 1 DM. Her BP needs to be maintained at goal consistently. She may benefit from finerinone in the future( not yet approved). Her abdominal USS showed right kidney 10.1 cm and structurally normal with normal cortex. Left kidney was only 8.9 cm.She likely will need Doppler of renal arteries given left kidney of 8.9 cm ( can reforming machine operator error vs atherosclerotic vascular disease, even though she is not on too many BP medications). She has RA and is on medications. She has H/O excess NSAID intake. I will also get a 24 hour urine for creatinine clearance. She may need a renal biopsy which I brought it up with her. She is not keen onit now but open to it if absolutely needed. Further management is pending evolving data. Time spent discussing all the above, retrieving data, patient encounter and documentation 51 minutes. Follow up given Orders: Orders Complete Blood Count Auto Diff 06/14/23 N18.30 - Chronic kidney disease, stage 3 unspecified Creatinine 06/14/23 N18.30 - Chronic kidney disease, stage 3 unspecified Calcium 06/14/23 N18.30 - Chronic kidney disease, stage 3 unspecified Phosphorus 06/14/23 N18.30 - Chronic kidney disease, stage 3 unspecified Immunofixation Pnl, Serum 06/14/23 N18.30 - Chronic kidney disease, stage 3 unspecified ANCA Vasculitides 06/14/23 N18.30 - Chronic kidney disease, stage 3 unspecified Prothrombin Time INR 06/14/23 N18.30 - Chronic kidney disease, stage 3 unspecif ied Blood Urea Nitrogen 06/14/23 N18.30 - Chronic kidney disease, stage 3 unspecified Electrolytes 06/14/23 N18.30 - Chronic kidney disease, stage 3 unspecified Protein Creatinine Ratio, Ur 06/14/23 N18.30 - Chronic kidney disease, stage 3 unspecified Vitamin D 25-OH Total 06/14/23 N18.30 - Chronic kidney disease, stage 3 unspecified PTHI 06/14/23 N18.30 - Chronic kidney disease, stage 3 unspecified Coding Level of Care Code New Pt Level 4 (80708) Diagnoses Stage 3a chronic kidney disease N18.31 Chronic kidney disease stage 3 subtype: stage 3a (GFR 45-59) Primary hypertension I10 Hypertension type: primary hypertension Type 1 diabetes mellitus with stage 3a chronic kidney disease E10.22; N18.31 Chronic kidney disease stage: stage 3 (moderate) Diabetes mellitus complication detail: with chronic kidney disease Chronic kidney disease stage 3 subtype: stage 3a (GFR 45-59)
[2023-06-14 15:59] VITALS: BP 132/82; PULSE 86; BMI 28.1
== END 2023-06-14 16:53 | disposition home or self-care (01) ==
PROVIDERS: PCP Nurse Practitioner Family; Visit Provider Internal Medicine Nephrology
DX: I12.9 Hypertensive chronic kidney disease with stage 1 through stage 4 chronic kidney disease, or unspecified chronic kidney disease (principal); N18.31 Chronic kidney disease, stage 3a; E10.22 Type 1 diabetes mellitus with diabetic chronic kidney disease
CPT/HCPCS: 99204

== ENCOUNTER → 2023-06-14 15:53 | Outpatient (BNVA) | payer OTHER, SELFPAY | PROVIDERS: PCP Nurse Practitioner Family; Visit Provider Internal Medicine Nephrology ==

== ENCOUNTER 2023-07-06 15:50 | Outpatient (AMB) | payer OTHER, SELFPAY ==
--- NOTE | 2023-07-06 15:53 | MHC.AM.SUB ---
Intake Vital Signs 07/06/23 15:59 Pulse 74 Pulse Source Pulse Oximeter Pulse Oximetry (%) 98 Oxygen Delivery Method Room Air Intake Visit Reasons: MAT Intake Intake Note: The patient presents for a mat intake Quality Systems Manager Required: No Allergies Iodinated Contrast Media [CONTRAST, IV] Allergy (Severe, Verified 07/06/23 16:00) ANAPHYLAXIS sarilumab [From Kevzara] Allergy (Verified 07/06/23 16:00) injeciton site reaction Do you need a note to return to daycare/school/sports/work: No HPI MAT Intake HPI Details Patient presents for MAT induction. [facility] Medical History Type 1 diabetes mellitus with kidney complication Fracture of fifth metatarsal bone of left foot Alcohol intake above recommended sensible limits Rheumatoid arthritis involving both hands with positive rheumatoid factor Dyslipidemia Type 1 diabetes mellitus with diabetic neuropathy Type 1 diabetes mellitus with hyperglycemia Surgical History History of breast implant History of inguinal hernia repair History of colonoscopy Family History Father No problems noted. Mother CVD (cardiovascular disease) Social History Alcohol intake: current Alcohol intake frequency: 0-2 drinks per day Patient Tobacco Use Status: Never used Tobacco Current occupational status: employed Current occupation: [employer] [place] Current occupational exposures/hazards: Yes Cognitive needs: No Hearing needs: No Vision needs: No Physical Exam Vital Signs: Last Vital Signs Pulse 74 07/06/23 15:59 Pulse Ox 98 07/06/23 15:59 Oxygen Delivery Method Room Air 07/06/23 15:59 Assessment & Plan Assessment & Plan Medications: New naltrexone Take 1/2 tab for the first 3 days- advance to full dose on day 4 50 mg PO DAILY 30 tabs 0RF Coding Level of Care Code New Pt Level 4 (41104)
[2023-07-06 15:59] VITALS: PULSE 74; O2SAT 98
--- NOTE | 2023-07-06 17:42 | A.OFFVIS_ITS ---
Intake Vital Signs 07/06/23 15:59 Pulse 74 Pulse Source Pulse Oximeter Pulse Oximetry (%) 98 Oxygen Delivery Method Room Air Intake Visit Reasons: MAT Intake Allergies Iodinated Contrast Media [CONTRAST, IV] Allergy (Severe, Verified 07/06/23 16:00) ANAPHYLAXIS sarilumab [From Kevzara] Allergy (Verified 07/06/23 16:00) injeciton site reaction MAT Intake Nursing Intake Reason for visit: AUD MAT Are you currently using?: Yes What are you taking?: Alcohol When was your last use?: Last night How much?: 1 Drink What is your source of income?: Employed [employer] What is your current relationship status?: Single Current PCP: Nils Barker Date of last visit: last jamison Substance Abuse History Substance Abuse History (includes route, frequency and quantity): Alcohol (4-5 Hard liquor drinks daily until 06/10/23- 1 glass of wine or 1 Beer since 06/10/23) Age of first use: 14 Social History Domestic Violence concerns: no Children: 2 Do you have a support system?: yes-family and friends Current mode of transportation?: personal Where are you currently residing?: [place] Drug Use Have you ever shared needles?: No Have you ever belonged to a needle exchange program?: No Do you buy needles at a pharmacy?: No Have you ever overdosed?: No Have you ever been hospitalized for an overdose?: No Was Naloxone administered?: No Recovery History Have you had any periods of recovery?: Yes What is your longest time in recovery?: 6 weeks When was the last time you were in recovery?: 2019 Have you ever had inpatient treatment for your substance abuse disorder?: No Have you been in an inpatient detoxification program?: No Have you been in an inpatient Rehab/[place] house?: No Have you been in an outpatient Methadone Maintenance program?: No Have you been in an outpatient Suboxone Maintenance program?: No Have you been in an AA/NA support program?: No Have you had a Recovery Support Eyelet Machine Operator?: No Have you had Peer Support?: No Details: Patient interested in Electronic Engineering Draftsperson- was given information Behavioral Health History Do you have a current provider? If so, who?: no BH diagnosis: no History of other addictive behavior: Food History of inpatient psychiatric hospitalization? If so, how many? Most Recent? Where?: no History of self harming thoughts?: No History of homicidal or suicidal intentions?: No Medical Conditions Endocarditis?: No Skin Infection: No Seizure related to withdrawal or overdose: No Head or brain injury: No Hepatitis A (if yes, have you been treated?): No Hepatitis B (if yes, have you been treated?): No Hepatitis C (if yes, have you been treated?): No HIV (if yes, have you been treated?): No TB (if yes, have you been treated?): No Other: No Do you have any chronic pain conditions?: Neuropathy in bilateral lower extremities- treated with Gabapentin Legal History History of incarceration: No Currently on parole or probation: No Court mandated programs: No Pending court cases: No DCF involvement: No HPI MAT Intake HPI Details Patient presents looking to initiaite MAT for AUD She had been drinking vodka for years She reports after work she would have 4-5 mixed drinks, and on the weekend would begin drinking in the morning and drink all day. She started tapering down her alcohol use over a month ago- switched from vodka to beer or wine. She is now only drinking one glass of beer or wine nightly. Denies having had any withdrawal symptoms over the past month while weaning. She has a close friend that has been in recovery for 2 years that she has been leaning on for support. LONI reviewed with patient, she is interested in trialing the naltrexone. Side effects reviewed with patient. Her goal is to stop drinking entirely, with hopes to one day be able to have a glass of wine with dinner. [facility] Medical History Type 1 diabetes mellitus with kidney complication Fracture of fifth metatarsal bone of left foot Alcohol intake above recommended sensible limits Rheumatoid arthritis involving both hands with positive rheumatoid factor Dyslipidemia Type 1 diabetes mellitus with diabetic neuropathy Type 1 diabetes mellitus with hyperglycemia Surgical History History of breast implant History of inguinal hernia repair History of colonoscopy Family History Father No problems noted. Mother CVD (cardiovascular disease) Social History Alcohol intake: current Alcohol intake frequency: 0-2 drinks per day Patient Tobacco Use Status: Never used Tobacco Current occupational status: employed [place] [employer] [place] Current occupational exposures/hazards: Yes Cognitive needs: No Hearing needs: No Vision needs: No Review of Systems Const Reports as per HPI Physical Exam Vital Signs: Last Vital Signs Pulse 74 07/06/23 15:59 Pulse Ox 98 07/06/23 15:59 Oxygen Delivery Method Room Air 07/06/23 15:59 Const General: cooperative Resp Effort & Inspection: normal respiratory effort Skin General skin exam: no rashes or lesions noted Psych Appearance: grossly normal and well kempt Mental Status: mental status grossly normal Speech and movement: Normal speech and movement present Affect: normal affect Thought content: Normal thought content present Insight: Good insight present (Psych) Assessment & Plan Assessment & Plan (1) Alcohol use disorder, moderate, dependence: Code(s): F10.20 - Alcohol dependence, uncomplicated Plan: -Naltrexone ordered, reviewed with patient to only take a half dose for the first three days and if she is tolerating well- advance to full dose on 4th day -Recovery supports reviewed- pt to think about if she would like a dance coach -Harm reduction discussion -Follow up 1 week Medications: New naltrexone Take 1/2 tab for the first 3 days- advance to full dose on day 4 50 mg PO DAILY 30 tabs 0RF Coding Level of Care Code New Pt Level 4 (16760) Diagnoses Alcohol use disorder, moderate, dependence F10.20
== END 2023-07-06 16:43 | disposition home or self-care (01) ==
PROVIDERS: PCP Nurse Practitioner Family; Visit Provider Nurse Practitioner Family
DX: F10.20 Alcohol dependence, uncomplicated (principal)
CPT/HCPCS: 99204

== ENCOUNTER → 2023-07-06 15:50 | Outpatient (BNVA) | payer OTHER, SELFPAY | PROVIDERS: PCP Nurse Practitioner Family; Visit Provider Nurse Practitioner Family ==

== ENCOUNTER 2023-07-12 06:15 | Outpatient (REF) | payer OTHER, SELFPAY ==
[2023-07-12 11:24] LABS: MANUAL DIFF FLAG NO
[2023-07-12 11:30] LABS: INTERNATIONAL NORM RATIO 0.8 (0.9-1.1); Prothrombin Time 10.3 SEC (11.1-13.3)
[2023-07-12 11:36] LABS: Basophils Absolute Auto 0.1 X10*3/uL (0.0-0.2); Eosinophils Absolute Auto 0.3 X10*3/uL (0.0-0.4); Eosinophils Percent Auto 5.8 % (0-4); Hematocrit 39.1 % (37.0-47.0); Hemoglobin 12.9 g/dl (12.0-16.0); Imm Gran Abs Auto 0.01 X10*3/uL (0.00-0.03); Imm Gran Pct Auto 0.2 % (0.0-0.4); Lymphocytes Absolute Auto 2.1 X10*3/uL (1.2-4.9); Lymphocytes Percent Auto 43.5 % (20-40); Mean Corpuscular Volume 90.9 fL (80.0-98.0); Mean Platelet Volume 11.1 fL (9.4-12.3); Monocytes Absolute Auto 0.4 X10*3/uL (0.1-1.2); Monocytes Percent Auto 8.3 % (2-11); Neutrophils Percent Auto 41.2 % (45-73); Platelet Count 232 X10*3/uL (160-400); Red Cell Distribution Width 11.9 % (11.0-16.0); White Blood Count 4.8 X10*3/uL (4.8-10.8)
[2023-07-12 12:05] LABS: Anion Gap 15 (12-20); Blood Urea Nitrogen 15 mg/dL (9-16); Calcium 9.9 mg/dL (8.4-10.2); Carbon Dioxide 25 mmol/L (22-29); Chloride 105 mmol/L (96-108); Estimated Glomerular Filt Rate 48; Phosphorus 4.4 mg/dL (2.7-4.5); Potassium 4.6 mmol/L (3.3-5.1); Sodium 140 mmol/L (135-145)
[2023-07-12 12:08] LABS: HBS Num1 0.55 mIU/mL (0-7.99); HBc Num1 0.12 S/CO (0.00-0.79); HBsAGNum1 0.39 S/CO (0.00-0.99); Hepatitis A Antibody IgM 0.14 Index (0-0.79); Hepatitis B Core Antibody Nonreactive (Nonreactive); Hepatitis B Surface Antigen Negative (Negative); ~HepC Num1 0.14 S/CO (0.00-0.79); ~Hepatitis A Antibody IgM Nonreactive (Nonreactive); ~Hepatitis B Surface Antibody NONREACTIVE (Nonreactive); ~Hepatitis C Antibody Nonreactive (Nonreactive)
[2023-07-13 12:48] LABS: Myeloperoxidase Antibody <1.0 AI; Proteinase 3 PR3 Antibodies <1.0 AI
[2023-07-14 12:13] LABS: IgA 188 mg/dL (47-310); IgG 1073 mg/dL (600-1640); IgM 127 mg/dL (50-300)
== END 2023-07-12 06:16 | disposition home or self-care (01) ==
LOC: HO.HMGCLDS 06:15
PROVIDERS: Absent Provider Internal Medicine Nephrology; PCP Nurse Practitioner Family; Referring Provider Internal Medicine Rheumatology; Visit Provider Nurse Practitioner Family
DX: R74.8 Abnormal levels of other serum enzymes (principal); N18.30 Chronic kidney disease, stage 3 unspecified
CPT/HCPCS: 36415; 80051; 82306; 82310; 82565; 82784; 84100; 84520; 85025; 85610; 86021; 86334; 86704; 86706; 86709; 86803; 87340

== ENCOUNTER 2023-07-25 15:46 | Outpatient (AMB) | payer OTHER, SELFPAY ==
--- NOTE | 2023-07-25 15:47 | A.OFFVIS_ITS ---
Intake Vital Signs 07/25/23 15:52 Height 5 ft 6 in Weight 167 lb 5.294 oz BMI 27.0 BP 118/72 Blood Pressure Location Rt brachial Position Sitting Pulse 72 Pulse Source Pulse Oximeter Temp 97 F Temp Source Skin Pulse Oximetry (%) 97 Oxygen Delivery Method Room Air Intake Visit Reasons: RA Intake Note: Last time pt was in office was 05/29/[address] Mckay but left without being seen. She presents today for follow up. 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 Accompanied by: Self / Same As Patient Allergies Iodinated Contrast Media [CONTRAST, IV] Allergy (Severe, Verified 07/25/23 15:52) ANAPHYLAXIS sarilumab [From Kevzara] Allergy (Verified 07/25/23 15:52) injeciton site reaction Medication List - Last Reconciled 07/25/23 by Lorena Aponte MD atorvastatin 20 mg PO BEDTIME 90 days blood sugar diagnostic As directed blood sugar diagnostic (FreeStyle Lite Strips) test 3 times every day blood-glucose meter (FreeStyle Lite Meter kit) test 3 times every day blood-glucose meter,continuous (Dexcom G6 Music Adapter) As directed blood-glucose sensor (Dexcom G6 Sensor device) continuous glucose monitoring blood-glucose transmitter (Dexcom G6 Transmitter device) As directed flash glucose scanning reader (FreeStyle Irvin 14 Day [place]) As directed flash glucose sensor (FreeStyle Irvin 14 Day Sensor kit) daily use gabapentin 800 mg PO BID insulin glargine (Lantus Solostar U-100 Insulin) 24 units (0.24 mL) subcut BEDTIME insulin lispro (Humalog KwikPen (U-100) Insulin) Sliding scale coverage subcut .3 times a day a.c. losartan 25 mg PO DAILY naltrexone 50 mg PO DAILY tocilizumab (Actemra ACTPen) 162 mg (0.9 mL) subcut QWEEK HPI HPI Comments History of Present Illness Details This is a 57-year-old female with seropositive RA who presents for follow-up. She has been on Actemra weekly for about 2 months now. She has not been getting any significant injection site reactions. She states that the weekly dose works much better overall. She still has a few swollen joints, especially the left hand but not nearly as tender. Previous history by Dr. Mckay 12/2022: The patient presents for evaluation of her seropositive rheumatoid arthritis. Presently she is on Actemra 162 mg subcutaneously every 2 weeks. This has had some benefit in her symptoms but she still gets pains in the elbows, wrists, knees, and hands. She takes gabapentin at bedtime which is helpful for neuropathic symptoms at night. She does have diabetes on insulin. In the past she said trials of methotrexate, Enbrel, and Humira. Besides the somewhat incomplete response in terms of joint pain the patient has been experiencing injection site reactions. These are characterized by an area of red and itchy skin about 3 cm in diameter. They last from 1-3 days after the injection. She is regularly drinking about 2 drinks a day. [facility] Medical History Type 1 diabetes mellitus with kidney complication Fracture of fifth metatarsal bone of left foot Alcohol intake above recommended sensible limits Rheumatoid arthritis involving both hands with positive rheumatoid factor Dyslipidemia Type 1 diabetes mellitus with diabetic neuropathy Type 1 diabetes mellitus with hyperglycemia Surgical History History of breast implant History of inguinal hernia repair History of colonoscopy Family History Father No problems noted. Mother CVD (cardiovascular disease) Social History Alcohol intake: current Alcohol intake frequency: 0-2 drinks per day Patient Tobacco Use Status: Never used Tobacco Current occupational status: employed Current occupation: [employer] – [place] Current occupational exposures/hazards: Yes Cognitive needs: No Hearing needs: No Vision needs: No Review of Systems Musc Denies arthralgias and Reports joint swelling Physical Exam Vital Signs: Last Vital Signs Temp 97 F 07/25/23 15:52 Pulse 72 07/25/23 15:52 BP 118/72 07/25/23 15:52 Pulse Ox 97 07/25/23 15:52 Oxygen Delivery Method Room Air 07/25/23 15:52 BMI result Body Mass Index 27.0 Const General: cooperative, healthy appearing and comfortable Nutritional Appearance: overweight Orientation/consciousness: patient oriented x3 Limitations: no limitations HEENT Head: Yes normocephalic and Yes atraumatic Mouth: moist mucous membranes Resp Effort & Inspection: normal respiratory effort and able to speak in complete sentences Auscultation: clear to auscultation bilaterally Cardio Rate: regular rate Rhythm: regular rhythm GI Inspection: No distended Palpation (GI): Soft to palpation and nontender Skin General skin exam: no rashes or lesions noted Neuro General: patient oriented x3 Extrem Other: Minimal right wrist puffiness with no tenderness No swollen joints in the right hand and wrist Normal range of motion of right wrist Mild puffiness of left wrist Mildly reduced left wrist flexion Swelling and minimal tenderness of left 2nd and 3rd MCPs Swelling of left 3rd finger, without tenderness Normal range of motion of both elbows and shoulders without pain Bilateral knee flexion and extension without pain Bilateral ankles without swelling or tenderness Negative MTP squeeze test bilaterally Assessment & Plan Assessment & Plan (1) Rheumatoid arthritis involving both hands with positive rheumatoid factor: Comment: ++RF-ve CCP 2015-treated with prednisone MTX May 2017 Enbrel added to methotrexate June 2017 Self-stopped methotrexate June 2018 due to feeling better on Enbrel. October 2020-reestablish care in the clinic, restarted on Enbrel. February 2021-changed to Humira due to active disease on exam. May 2021-changed to Kevzara due to active disease on exam, stopped February 2022 due to reported injection site reaction. October 2021-started on Actemra took for 2 months with good effect, patient did not follow-up in clinic until August 2022. August 2022-off medications - Actemra restarted, advanced to weekly 04/2023 effective Code(s): M05.741 - Rheumatoid arthritis with rheumatoid factor of right hand without organ or systems involvement; M05.742 - Rheumatoid arthritis with rheumatoid factor of left hand without organ or systems involvement Plan: This is a 57-year-old female with seropositive RA who presents for follow-up. Doing much better overall on Actemra weekly. Continues to have a few swollen joints but not tender Continue Actemra weekly. 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 She will think about it Plan I spent 28 minutes reviewing patient's chart, evaluating patient, ordering diagnostic workup, counseling patient and documenting in the chart Orders: Orders Complete Blood Count Auto Diff 3 Months M05.741 - Rheumatoid arthritis with rheumatoid factor of right hand without organ or systems involvement, M05.742 - Rheumatoid arthritis with rheumatoid factor of left hand without organ or systems involvement Comprehensive Met. Panel 3 Months M05.741 - Rheumatoid arthritis with rheumatoid factor of right hand without organ or systems involvement, M05.742 - Rheumatoid arthritis with rheumatoid factor of left hand without organ or systems involvement C Reactive Protein 3 Months M05.741 - Rheumatoid arthritis with rheumatoid factor of right hand without organ or systems involvement, M05.742 - Rheumatoid arthritis with rheumatoid factor of left hand without organ or systems i nvolvement Erythrocyte Sedimentation Rate 3 Months M05.741 - Rheumatoid arthritis with rheumatoid factor of right hand without organ or systems involvement, M05.742 - Rheumatoid arthritis with rheumatoid factor of left hand without organ or systems involvement Coding Level of Care Code Est Pt Level 4 (72197) Diagnoses Rheumatoid arthritis involving both hands with positive rheumatoid factor M05.741; M05.742 Long-term use of immunosuppressant medication Z79.60 Immunization counseling Z71.85
[2023-07-25 15:52] VITALS: BP 118/72; PULSE 72; TEMP 36.1; O2SAT 97; BMI 27.0
== END 2023-07-25 16:13 | disposition home or self-care (01) ==
PROVIDERS: PCP Nurse Practitioner Family; Visit Provider Student in an Organized Health Care Education/Training Program
DX: M05.741 Rheumatoid arthritis with rheumatoid factor of right hand without organ or systems involvement (principal); M05.742 Rheumatoid arthritis with rheumatoid factor of left hand without organ or systems involvement; Z79.60 Long term (current) use of unspecified immunomodulators and immunosuppressants; Z71.85 Encounter for immunization safety counseling
CPT/HCPCS: 99214

== ENCOUNTER → 2023-07-25 15:46 | Outpatient (BNVA) | payer OTHER, SELFPAY | PROVIDERS: PCP Nurse Practitioner Family; Visit Provider Student in an Organized Health Care Education/Training Program ==

== ENCOUNTER 2023-08-03 15:51 | Outpatient (AMB) | payer OTHER, SELFPAY ==
[2023-08-03 16:07] VITALS: BP 132/84
--- NOTE | 2023-08-03 16:07 | MHC.AM.SUB ---
Intake Vital Signs 08/03/23 16:07 BP 132/84 Blood Pressure Location Rt brachial Position Sitting Intake Visit Reasons: mat visit Allergies Iodinated Contrast Media [CONTRAST, IV] Allergy (Severe, Verified 07/25/23 15:52) ANAPHYLAXIS sarilumab [From Kevzara] Allergy (Verified 07/25/23 15:52) injeciton site reaction HPI mat visit HPI Details Pt presents for AUD treatment and follow up She reports her alcohol use has been cut back to 2 cans of Coors [place] daily. She is excited about the progress she has made. She reports she initially experienced GI upset (nausea, diarrhea) when she started taking the naltrexone. She reports she mistakenly started with 50mg instead of 1/2 pill as she was instructed. She stopped the medication after that first dose, and resumed this week and is on day 4 of 50mg with no ill effects at this time. She is hoping to continue to cut down and someday be able to have a drink and stop at just one. [facility] Medical History Type 1 diabetes mellitus with kidney complication Fracture of fifth metatarsal bone of left foot Alcohol intake above recommended sensible limits Rheumatoid arthritis involving both hands with positive rheumatoid factor Dyslipidemia Type 1 diabetes mellitus with diabetic neuropathy Type 1 diabetes mellitus with hyperglycemia Surgical History History of breast implant History of inguinal hernia repair History of colonoscopy Family History Father No problems noted. Mother CVD (cardiovascular disease) Social History Alcohol intake: current Alcohol intake frequency: 0-2 drinks per day Patient Tobacco Use Status: Never used Tobacco Current occupational status: employed [place] [employer] [place] Current occupational exposures/hazards: Yes Cognitive needs: No Hearing needs: No Vision needs: No Review of Systems Const Reports as per HPI Physical Exam Vital Signs: Last Vital Signs BP 132/84 08/03/23 16:07 Const General: cooperative, healthy appearing and no acute distress Resp Effort & Inspection: normal respiratory effort Psych Appearance: grossly normal Mental Status: mental status grossly normal Speech and movement: Normal speech and movement present Affect: normal affect Attitude: cooperative Assessment & Plan Assessment & Plan (1) Alcohol use disorder, moderate, dependence: Code(s): F10.20 - Alcohol dependence, uncomplicated Plan: -Continue naltrexone -Harm reduction discussion -Follow up 4 weeks Coding Level of Care Code Est Pt Level 3 (70307) Diagnoses Alcohol use disorder, moderate, dependence F10.20
== END 2023-08-03 16:21 | disposition home or self-care (01) ==
PROVIDERS: PCP Nurse Practitioner Family; Visit Provider Nurse Practitioner Family
DX: F10.20 Alcohol dependence, uncomplicated (principal)
CPT/HCPCS: 99213

== ENCOUNTER → 2023-08-03 15:51 | Outpatient (BNVA) | payer OTHER, SELFPAY | PROVIDERS: PCP Nurse Practitioner Family; Visit Provider Nurse Practitioner Family ==

== ENCOUNTER → 2023-08-18 16:07 | Outpatient (BNVA) | payer OTHER, SELFPAY | PROVIDERS: PCP Nurse Practitioner Family; Visit Provider Internal Medicine Nephrology ==

== ENCOUNTER 2023-08-24 06:02 | Outpatient (REF) | payer OTHER, SELFPAY ==
[2023-08-24 11:46] LABS: MANUAL DIFF FLAG NO
[2023-08-24 11:56] LABS: Appearance Urine Clear; Basophils Absolute Auto 0.1 X10*3/uL (0.0-0.2); Color Urine Yellow; Eosinophils Absolute Auto 0.2 X10*3/uL (0.0-0.4); Eosinophils Percent Auto 3.6 % (0-4); Glucose Urine UA Negative (Negative); Hematocrit 36.7 % (37.0-47.0); Hemoglobin 12.2 g/dl (12.0-16.0); Imm Gran Abs Auto 0.01 X10*3/uL (0.00-0.03); Imm Gran Pct Auto 0.2 % (0.0-0.4); Leukocyte Esterase Urine Negative (Negative); Lymphocytes Absolute Auto 2.9 X10*3/uL (1.2-4.9); Lymphocytes Percent Auto 47.3 % (20-40); Mean Corpuscular HGB Conc 33.2 g/dl (31.0-35.0); Mean Corpuscular Hemoglobin 29.2 pg (27.0-33.0); Mean Corpuscular Volume 87.8 fL (80.0-98.0); Mean Platelet Volume 10.7 fL (9.4-12.3); Monocytes Absolute Auto 0.5 X10*3/uL (0.1-1.2); Monocytes Percent Auto 8.3 % (2-11); Neutrophils Absolute Auto 2.4 x10*3/uL (2.0-8.3); Neutrophils Percent Auto 39.6 % (45-73); Nitrite Urine Negative (Negative); Platelet Count 241 X10*3/uL (160-400); Red Blood Count 4.18 X10*6/uL (4.20-5.50); Red Cell Distribution Width 11.8 % (11.0-16.0); Specific Gravity - Urine 1.025 (1.005-1.025); Urine Blood Negative (Negative); Urine Ketones Negative (Negative); Urine Protein Trace mg/dL (Neg-Trace)
[2023-08-24 12:02] LABS: Estimated Average Glucose 206 mg/dL; Hemoglobin A1c % 8.8 % (<6.0)
[2023-08-24 12:18] LABS: Creatinine Urine 139.95 mg/dL; Protein/Creatinine Ratio, Ur 0.15 (<0.2); Total Protein Urine Random 21 mg/dL (<12)
[2023-08-24 12:20] LABS: Creatinine Urine 139.03 mg/dL; Microalbum/Creatinine Ratio Ur 9.3 ug/mg cr (<30)
[2023-08-24 12:33] LABS: TSH reflex Free T4 3.17 uIU/mL (0.32-4.0)
[2023-08-24 12:36] LABS: Alanine Aminotransferase 14 U/L (0-31); Albumin Level 4.1 g/dL (3.5-5.0); Anion Gap 12 (12-20); Aspartate Amino Transferase 14 U/L (5-31); Bilirubin Total 1.2 mg/dL (0.0-1.0); Blood Urea Nitrogen 22 mg/dL (9-16); Calcium 9.2 mg/dL (8.4-10.2); Carbon Dioxide 24 mmol/L (22-29); Chloride 108 mmol/L (96-108); Cholesterol 242 mg/dL (<200); Estimated Glomerular Filt Rate 47; Glucose Fasting 117 mg/dL (60-99); HDL Cholesterol 44 mg/dL (>40); LDL Cholesterol Calculated 166 mg/dL (<100); Potassium 4.1 mmol/L (3.3-5.1); Sodium 140 mmol/L (135-145); Total Protein 6.6 g/dL (6.5-8.0); Triglycerides 163 mg/dL (<150)
[2023-08-24 12:39] LABS: Alkaline Phosphatase 66 U/L (39-117)
== END 2023-08-24 06:03 | disposition home or self-care (01) ==
LOC: HO.HMGCLDS 06:02
PROVIDERS: PCP Nurse Practitioner Family; Referring Provider Internal Medicine Nephrology; Visit Provider Nurse Practitioner Family
DX: E10.40 Type 1 diabetes mellitus with diabetic neuropathy, unspecified (principal); N18.30 Chronic kidney disease, stage 3 unspecified
CPT/HCPCS: 36415; 80053; 80061; 81003; 82043; 82570; 83036; 84156; 84443; 85025

== ENCOUNTER 2023-08-31 16:01 | Outpatient (AMB) | payer OTHER, SELFPAY ==
--- NOTE | 2023-08-31 16:12 | A.OFFVISCC_ITS ---
Intake Intake Visit Reasons: mat visit Allergies Iodinated Contrast Media [CONTRAST, IV] Allergy (Severe, Verified 08/18/23 16:19) ANAPHYLAXIS sarilumab [From Kevzara] Allergy (Verified 08/18/23 16:19) injeciton site reaction HPI mat visit HPI Details Patient presents via telehealth for AUD treatment and follow up She reports she has done well, and feels good about her decrease in use SHe has only been drinking 1 beer nightly with the exception of a few days where she had 2-3 beers She reports she was experiencing interpersonal challenges with her co-workers that was a stressor for her She stopped taking the naltrexone, she was experiencing GI side effects that would not subside She feels as though she is doing well without the naltrexone [facility] Medical History Type 1 diabetes mellitus with kidney complication Fracture of fifth metatarsal bone of left foot Alcohol intake above recommended sensible limits Rheumatoid arthritis involving both hands with positive rheumatoid factor Dyslipidemia Type 1 diabetes mellitus with diabetic neuropathy Type 1 diabetes mellitus with hyperglycemia Surgical History History of breast implant History of inguinal hernia repair History of colonoscopy Family History Father No problems noted. Mother CVD (cardiovascular disease) Social History Alcohol intake: current Alcohol intake frequency: 0-2 drinks per day Patient Tobacco Use Status: Never used Tobacco Current occupational status: employed Current occupation: [employer] [facility] [place] Current occupational exposures/hazards: Yes Cognitive needs: No Hearing needs: No Vision needs: No Review of Systems Const Reports as per HPI Assessment & Plan Assessment & Plan (1) Alcohol use disorder, moderate, dependence: Code(s): F10.20 - Alcohol dependence, uncomplicated Plan: -Harm reduction discussion -Reviewed with patient that she can increase her visits if she feels as though her alcohol use is increasing -Follow up 4 weeks telehealth Telehealth Telehealth Location of provider rendering services: practice address Location of patient: address on file Patient Identification confirmed using: Name, : Yes Telehealth method: voice only Patient verbally consented to treatment: Yes Patient verbally consented to billing insurance company: Yes Patient informed of any privacy concerns related to visit: Yes Minutes spent on Phone/Video with Pt.: 10 Coding Level of Care Code Tele Est Pt Level 2 (34361) Diagnoses Alcohol use disorder, moderate, dependence F10.20
== END 2023-08-31 16:12 | disposition home or self-care (01) ==
PROVIDERS: PCP Nurse Practitioner Family; Visit Provider Nurse Practitioner Family
DX: F10.20 Alcohol dependence, uncomplicated (principal)
CPT/HCPCS: 99212

== ENCOUNTER → 2023-08-31 16:01 | Outpatient (BNVA) | payer OTHER, SELFPAY | PROVIDERS: PCP Nurse Practitioner Family; Visit Provider Nurse Practitioner Family ==

== ENCOUNTER 2023-11-13 07:57 | Outpatient (REF) | payer OTHER, SELFPAY ==
[2023-11-13 10:32] LABS: MANUAL DIFF FLAG NO
[2023-11-13 10:39] LABS: Basophils Absolute Auto 0.1 X10*3/uL (0.0-0.2); Eosinophils Absolute Auto 0.2 X10*3/uL (0.0-0.4); Eosinophils Percent Auto 3.1 % (0-4); Hematocrit 39.2 % (37.0-47.0); Hemoglobin 13.4 g/dl (12.0-16.0); Imm Gran Abs Auto 0.01 X10*3/uL (0.00-0.03); Imm Gran Pct Auto 0.2 % (0.0-0.4); Lymphocytes Absolute Auto 2.7 X10*3/uL (1.2-4.9); Lymphocytes Percent Auto 46.4 % (20-40); Mean Corpuscular HGB Conc 34.2 g/dl (31.0-35.0); Mean Corpuscular Hemoglobin 29.9 pg (27.0-33.0); Mean Corpuscular Volume 87.5 fL (80.0-98.0); Mean Platelet Volume 10.4 fL (9.4-12.3); Monocytes Absolute Auto 0.4 X10*3/uL (0.1-1.2); Monocytes Percent Auto 7.5 % (2-11); Neutrophils Absolute Auto 2.4 x10*3/uL (2.0-8.3); Neutrophils Percent Auto 41.8 % (45-73); Platelet Count 233 X10*3/uL (160-400); Red Blood Count 4.48 X10*6/uL (4.20-5.50); Red Cell Distribution Width 13.2 % (11.0-16.0); White Blood Count 5.8 X10*3/uL (4.8-10.8)
[2023-11-13 10:56] LABS: Alanine Aminotransferase 14 U/L (0-31); Albumin Level 4.4 g/dL (3.5-5.0); Alkaline Phosphatase 77 U/L (39-117); Anion Gap 13 (12-20); Aspartate Amino Transferase 18 U/L (5-31); Bilirubin Total 1.4 mg/dL (0.0-1.0); Blood Urea Nitrogen 17 mg/dL (9-16); C Reactive Protein < 0.04 mg/dL (< or = 0.50); Calcium 9.4 mg/dL (8.4-10.2); Carbon Dioxide 26 mmol/L (22-29); Chloride 105 mmol/L (96-108); Estimated Glomerular Filt Rate 49; Glucose Random 96 mg/dL (60-115); Potassium 4.9 mmol/L (3.3-5.1); Sodium 139 mmol/L (135-145); Total Protein 7.2 g/dL (6.5-8.0)
[2023-11-13 11:23] LABS: Erythrocyte Sedimentation Rate 2 MM/HR (0-20)
== END 2023-11-13 07:58 | disposition home or self-care (01) ==
LOC: HO.HMGCLDS 07:57
PROVIDERS: PCP Nurse Practitioner Family; Referring Provider Student in an Organized Health Care Education/Training Program; Visit Provider Internal Medicine Nephrology
DX: M05.741 Rheumatoid arthritis with rheumatoid factor of right hand without organ or systems involvement (principal); M05.742 Rheumatoid arthritis with rheumatoid factor of left hand without organ or systems involvement
CPT/HCPCS: 36415; 80053; 85025; 85652; 86140

== ENCOUNTER 2024-02-03 11:49 | Outpatient (AMB) | payer OTHER, SELFPAY ==
--- NOTE | 2024-02-03 12:17 | MHC.OFFWIV ---
Intake Vital Signs 02/03/24 12:18 Height 5 ft 6 in Weight 171 lb BMI 27.6 BP 122/70 Blood Pressure Location Rt brachial Position Sitting Pulse 96 Pulse Source Pulse Oximeter Temp 98.3 F Temp Source Oral Pulse Oximetry (%) 98 Oxygen Delivery Method Room Air Intake Visit Reasons: EP sore throat runny nose cough body aches Intake Note: pt here c/o Sore throat, runny nose, cough and body aches. Started Monday 01/29 Patient Tobacco Use Status: Never used Tobacco Allergies Iodinated Contrast Media [CONTRAST, IV] Allergy (Severe, Verified 02/03/24 12:18) ANAPHYLAXIS sarilumab [From Kevzara] Allergy (Verified 02/03/24 12:18) injeciton site reaction Do you need a note to return to daycare/school/sports/work: No HPI EP sore throat runny nose cough body aches HPI Details Patient is a 58-year-old female with history of diabetes and rheumatoid arthritis with long-term use of immunosuppressive medication, who comes to the walk-in clinic complaining of a few days of runny nose, postnasal drip, sore throat, mild cough, and resolving body aches (with [id number] medication). She reports that she did not test for COVID yet, and wanted to rule this out before hosing a family dinner. She denies significant coughing, current fever or chills, chest pain or discomfort, shortness of breath, dizziness or weakness, malaise, vertigo, nausea vomiting or diarrhea, anorexia, abdominal pain, flank pain, urinary symptoms, or other significant associated symptoms. REPLACED BY [facility] Medical History Type 1 diabetes mellitus with kidney complication Fracture of fifth metatarsal bone of left foot Alcohol intake above recommended sensible limits Rheumatoid arthritis involving both hands with positive rheumatoid factor Dyslipidemia Type 1 diabetes mellitus with diabetic neuropathy Type 1 diabetes mellitus with hyperglycemia Surgical History History of breast implant History of inguinal hernia repair History of colonoscopy Family History Father No problems noted. Mother CVD (cardiovascular disease) Social History Alcohol intake: current Alcohol intake frequency: 0-2 drinks per day Patient Tobacco Use Status: Never used Tobacco Current occupational status: employed Current occupation: [employer] [facility] [place] Current occupational exposures/hazards: Yes Cognitive needs: No Hearing needs: No Vision needs: No Review of Systems Const All systems reviewed & are unremarkable except as noted in HPI and below Physical Exam Vital Signs: Last Vital Signs Temp 98.3 F 02/03/24 12:18 Pulse 96 02/03/24 12:18 BP 122/70 02/03/24 12:18 Pulse Ox 98 02/03/24 12:18 Oxygen Delivery Method Room Air 02/03/24 12:18 BMI result Body Mass Index 27.6 Const General: cooperative, healthy appearing, comfortable, no acute distress, alert, awake, Physically active and well groomed; No anxious, diaphoretic, ill appearing, intoxicated appearing, poor hygiene or tired appearing Nutritional Appearance: average body habitus Orientation/consciousness: patient oriented x3 Limitations: no limitations HEENT Head: Yes normal to inspection, Yes normocephalic and Yes atraumatic Ears: hearing grossly normal bilaterally, external ears normal, TM's normal bilaterally and EAC's normal General nose exam: Normal external nose present, Abnormal mucous membranes and turbinates present and Nasal discharge present Face and sinus: Yes normal facial exam, Yes sinuses nontender and Yes face symmetric Mouth: Normal oral and palatal mucosa present, lip normal and tongue normal Throat: Yes abnormal tonsil (mildly erythematous bilaterally), No peritonsillar mass, Yes postnasal drainage (Clear), No uvular edema and No cobblestoning Eyes General: appearance normal, both eyes and all related structures Neck Neck: Yes normal visual inspection, Yes no lymphadenopathy, Yes trachea midline, Yes supple and No anterior neck swelling Resp Effort & Inspection: normal respiratory effort, able to speak in complete sentences, normal respiratory pattern, no audible wheezes, no cough, respiratory effort not decreased, no grunting, not labored, no nasal flaring, no retractions, no stridor, not tachypneic, no tripod positioning, no use of accessory muscles and symmetric chest movement Auscultation: clear to auscultation bilaterally, no crackles, no rales, no rhonchi, no wheezes, lung sounds not diminished and No rub present Cardio Palpation: normal PMI Rate: regular rate Rhythm: regular rhythm General: Yes no CVA tenderness Back/Spine/Pelvis Back: no CVA tenderness Skin Other: Good color, warm and dry Neuro General: patient oriented x3 and gait normal Psych Appearance: grossly normal Mental Status: mental status grossly normal Speech and movement: Normal speech and movement present Affect: normal affect Attitude: cooperative Thought process: Normal thought process present Insight: Good insight present (Psych) Judgement: Good judgement present (Psych) Results AMB Rapid Strep AMB Rapid Strep Negative Last Edit by Javier Jeff CMA on 02/03/24 12:47 Results Reviewed Results Reviewed: Laboratory Last Values Strep Scn Rapid Clinic Negative 02/03/24 12:46 Negative strep test Assessment & Plan Assessment & Plan (1) Upper respiratory infection: Code(s): J06.9 - Acute upper respiratory infection, unspecified Qualifiers: URI type: unspecified viral URI Qualified Code(s): J06.9 - Acute upper respiratory infection, unspecified Plan: Patient is a 58-year-old female with diabetes and rheumatoid arthritis who comes to the walk-in with viral syndrome symptoms, apparent acute upper respiratory infection. Rapid strep test negative. Pending rapid COVID, as well as PCR for flu COVID and RSV. Patient vital signs are stable, exam overall unremarkable and symptoms are tolerable with [id number] medication. Patient mostly concerned for COVID testing, as she wants to host a family dinner and is worried about spreading infection. We discussed continuing supportive measures, and follow up if symptoms persist or worsen. She knows to go to the emergency department with any worrisome symptoms. Orders: Orders AMB Rapid Strep Screen 02/03/24 Z13.9 - Encounter for screening, unspecified BinaxNOW Covid-19 Ag 02/03/24 Z20.822 - Contact with and (suspected) exposure to COVID-19 SARS-CoV2/FLU/RSV 02/03/24 J06.9 - Acute upper respiratory infection, unspecified Coding Level of Care Code Est Pt Level 4 (83780) Diagnoses Viral upper respiratory tract infection J06.9 URI type: unspecified viral URI
[2024-02-03 12:18] VITALS: BP 122/70; PULSE 96; TEMP 36.8; O2SAT 98; BMI 27.6
== END 2024-02-03 13:42 | disposition home or self-care (01) ==
PROVIDERS: PCP Nurse Practitioner Family; Visit Provider Physician Assistant Medical
DX: J06.9 Acute upper respiratory infection, unspecified (principal); J02.9 Acute pharyngitis, unspecified
CPT/HCPCS: 87880; 99051; 99214

== ENCOUNTER 2024-02-03 13:31 | Outpatient (REF) | payer OTHER, SELFPAY ==
[2024-02-03 13:54] LABS: Binax Now Covid-19 Ag Negative (Negative)
[2024-02-03 13:55] LABS: Binax Internal Control QC Valid
[2024-02-03 16:08] LABS: Influenza A PCR NEGATIVE (Negative); Influenza B PCR NEGATIVE (Negative); Resp Syncy Virus RNA Qual PCR NEGATIVE (Negative); SARS COV2 PCR INHOUSE NEGATIVE (Negative)
== END 2024-02-03 13:32 | disposition home or self-care (01) ==
LOC: HO.HMGCLDS 13:31
PROVIDERS: Visit Provider Physician Assistant Medical
DX: Z20.822 Contact with and (suspected) exposure to COVID-19 (principal); J06.9 Acute upper respiratory infection, unspecified
CPT/HCPCS: 0241U; 87811